=== PATIENT | female | born 1965 | race Caucasian/White ===

== ENCOUNTER 2022-10-17 19:19 | Emergency (ER) | payer MEDICARE, SELFPAY ==
[2022-10-17] VITALS (9 sets, daily range): BP systolic 137–202; BP diastolic 94–110; PULSE 71–108; RESP 16–19; TEMP 36.7; O2SAT 92–99
--- NOTE | 2022-10-17 19:57 | CTR_ITS ---
PROCEDURE INFORMATION: Exam: CTA Head With Contrast, Arteriography Exam date and time: 10/17/2022 8:56 PM Age: 57 years old Clinical indication: Pain; Headache; Additional info: R neck pain/dee TECHNIQUE: Imaging protocol: Computed tomographic angiography of the head with contrast. Exam focused on the arteries. 3D rendering (Not supervised by radiologist): MIP and/or 3D reconstructed images were created by the technologist. Radiation optimization: All CT scans at this facility use at least one of these dose optimization techniques: automated exposure control; mA and/or kV adjustment per patient size (includes targeted exams where dose is matched to clinical indication); or iterative reconstruction. Contrast material: OMNI 350; Contrast volume: 100 ml; Contrast route: INTRAVENOUS (IV); REPORTING DATA: Count of CT and Cardiac NM exams in prior 12 months: This patient has received 0 known CTs and 0 known cardiac nuclear medicine studies in the 12 months prior to the current study. COMPARISON: No relevant prior studies available. RADIATION DOSE METRICS: Total DLP (mGy-cm): 647.8 FINDINGS: ANTERIOR CIRCULATION: Right internal carotid artery: Intracranial segment is patent with no significant stenosis. No aneurysm. Right middle cerebral artery: No occlusion or significant stenosis. No aneurysm. Right anterior cerebral artery: No occlusion or significant stenosis. No aneurysm. Left internal carotid artery: Intracranial segment is patent with no significant stenosis. No aneurysm. Left middle cerebral artery: No occlusion or significant stenosis. No aneurysm. Left anterior cerebral artery: No occlusion or significant stenosis. No aneurysm. POSTERIOR CIRCULATION: Right vertebral artery: No occlusion or significant stenosis. No aneurysm. 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 Left vertebral artery: No occlusion or significant stenosis. No aneurysm. Basilar artery: No occlusion or significant stenosis. No aneurysm. Right posterior cerebral artery: No occlusion or significant stenosis. No aneurysm. Left posterior cerebral artery: No occlusion or significant stenosis. No aneurysm. Brain: No focal hemorrhage or midline shift identified. There is mild atrophy and chronic cerebral white matter ischemic change. Cerebral ventricles: No evidence of ventriculomegaly or hydrocephalus. The ventricles seem age-appropriate. Bones/joints: Unremarkable. No acute fracture. Soft tissues: Unremarkable. PROCEDURE INFORMATION: Exam: CTA Neck With Contrast Exam date and time: 10/17/2022 8:56 PM Age: 57 years old Clinical indication: Pain; Headache; Additional info: R neck pain/dee TECHNIQUE: Imaging protocol: Computed tomographic angiography of the neck with contrast. 3D rendering (Not supervised by radiologist): MIP and/or 3D reconstructed images were created by the technologist. Radiation optimization: All CT scans at this facility use at least one of these dose optimization techniques: automated exposure control; mA and/or kV adjustment per patient size (includes targeted exams where dose is matched to clinical indication); or iterative reconstruction. Contrast material: OMNI 350; Contrast volume: 100 ml; Contrast route: INTRAVENOUS (IV); REPORTING DATA: Count of CT and Cardiac NM exams in prior 12 months: This patient has received 0 known CTs and 0 known cardiac nuclear medicine studies in the 12 months prior to the current study. COMPARISON: No relevant prior studies available. RADIATION DOSE METRICS: Total DLP (mGy-cm): 389.1 FINDINGS: Right common carotid artery: No stenosis. No dissection or occlusion. Right internal carotid artery: No stenosis of the extracranial segment. No dissection or occlusion. Right external carotid artery: No occlusion or high-grade stenosis identififed. Left common carotid artery: No stenosis. No dissection or occlusion. Left internal carotid artery: No stenosis of the extracranial segment. No dissection or occlusion. Left external carotid artery: No occlusion or high-grade stenosis identififed. Right vertebral artery: No stenosis. No dissection or occlusion. 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 Left vertebral artery: No stenosis. No dissection or occlusion. Soft tissues: No significant soft tissue swelling or other acute finding noted. Bones/joints: No acute fracture. Severe right TMJ DJD. Mild diffuse cervical degenerative change. CT/CT angio headneck* [id number] IMPRESSION: 1. No large vessel stenosis or occlusion. 2. Mild age-related changes. IMPRESSION: No stenosis or occlusion. REFERENCES: NASCET CRITERIA. The degree of stenosis in the cervical segment of the internal carotid artery is based on NASCET criteria. Normal is no stenosis. Mild is less than 50% stenosis. Moderate is 50-69% stenosis. Severe is 70% to 99% stenosis. Total occlusion is no detectable patent lumen.
--- NOTE | 2022-10-17 19:58 | W.ED.HA ---
Documented by User: JAMA Arteaga 10/18/22 20:10 HPI - Headache General: Chief Complaint: Headache Stated Complaint: head and neck pain Time Seen by Provider: 10/17/22 19:41 Mode of arrival: ambulatory Limitations: no limitations History of Present Illness: 57-year-old female originally seen by Mrs. Cosby?MURRAY Sanchez. I have seen the patient as well and examined her. This lady has a history of migraines. She complains of a headache today that is somewhat unlike her normal migraine. She has intense neck pain with decreased ability to move her neck without significant discomfort. She is light sensitive. She is nauseated pain was unrelieved by sumatriptan at home. Patient is a 57-year-old female presents to ED today with a complaint of headache and neck pain. Patient tells me symptoms started yesterday. She states she has a history of chronic regional pain syndrome as well as a hereditary spastic disorder. She states both of these conditions can cause headaches and she does have a longstanding history of diagnosed migraines. She states her headache feels somewhat characteristic of previous migraines although the pain in her neck is slightly abnormal. She states pain is mainly to the right side of her neck and worsening with movement. She has not had any visual changes. No recent illness. 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 Associated symptoms: Deny malaise, nausea or vomiting Review of Systems Const: Denies: chills, body aches, fatigue or malaise Eyes: Denies: change in vision, photophobia, floaters or seeing flashes GI: Denies: nausea or vomiting Musc: Reports: neck pain; Denies: back pain, extremity pain, extremity swelling, joint pain or joint swelling Neuro: Reports: headache(s); Denies: behavioral changes, Slurred speech present or seizure-like activity Physical Exam Const: COMMON NORMALS: average body habitus, patient oriented x3, no limitations, alert and well nourished ORIENTATION/CONSCIOUSNESS: Yes awake, Yes oriented to person, Yes oriented to place and Yes oriented to time Eye: GENERAL EYE: normal light reflex VISUAL PEDROZA: No peripheral vision loss and No central vision loss DIRECT OPHTHALMOSCOPY: Yes normal light reflex Neck/C-Spine: COMMON NORMALS: no lymphadenopathy and no meningeal signs GENERAL: Yes normal visual inspection CERVICAL SPINE: Yes pain with cervical ROM and Yes Paracervical muscle tenderness right Extremity: GENERAL: Yes normal exam except as noted Neuro: FERNANDEZ COMA SCALE: document GCS findings [place] coma scale total score: 15 COMMON NORMALS: patient oriented x3, CN's II-XII intact bilaterally and moves all extremities SENSORIUM/ORIENTATION: Yes alert, Yes oriented to person, Yes oriented to place and Yes oriented to time MENINGEAL SIGNS: Yes no meningeal signs Course Vital Signs: Vital signs: Vital Signs Temperature 98.5 F 10/18/22 00:49 Pulse Rate 105 H 10/18/22 00:49 Respiratory Rate 18 10/18/22 00:49 Blood Pressure 162/105 10/18/22 00:49 Pulse Oximetry 98 10/18/22 00:49 Oxygen Delivery Me thod Room Air 10/18/22 00:00 MDM - Headache Lab Data 10/17/22 20:03 10/17/22 20:03 Radiology Impressions Head/Neck CTA 10/17/22 19:57 IMPRESSION: 1. No large vessel stenosis or occlusion. 2. Mild age-related changes. IMPRESSION: No stenosis or occlusion. REFERENCES: NASCET CRITERIA. The degree of stenosis in the cervical segment of the internal carotid artery is based on NASCET criteria. Normal is no stenosis. Mild is less than 50% stenosis. Moderate is 50-69% stenosis. Severe is 70% to 99% stenosis. Total occlusion is no detectable patent lumen. Cervical Spine CT 10/17/22 22:54 IMPRESSION: 1. No acute findings. 2. Mild mid to lower cervical degenerative change. 3. Severe right TMJ DJD. Laboratory Results WBC 7.5 10^3/uL (4.0-10.0) 10/17/22 20:03 RBC 4.68 10^6/uL (4.1-5.3) 10/17/22 20:03 Hgb 13.1 g/dL (11.5-15.3) 10/17/22 20:03 Hct 40.5 % (37.0-47.0) 10/17/22 20:03 MCV 86.5 fl (81-99) 10/17/22 20:03 MCH 28.0 pg (28.0-34.0) 10/17/22 20:03 MCHC 32.3 g/dL (30.0-36.0) 10/17/22 20:03 RDW 13.2 % (12.1-15.1) 10/17/22 20:03 Plt Count 267 10^3/cmm (130-400) 10/17/22 20:03 MPV 11.0 fL (7.4-10.4) H 10/17/22 20:03 Neut % (Auto) 47.0 % 10/17/22 20:03 Lymph % (Auto) 41.9 % 10/17/22 20:03 Carroll % (Auto) 8.9 % 10/17/22 20:03 Eos % (Auto) 1.1 % 10/17/22 20:03 Baso % (Auto) 0.8 % 10/17/22 20:03 Neut # (Auto) 3.51 10^3/uL (1.8-7.7) 10/17/22 20:03 Lymph # (Auto) 3.1 10^3/uL (0.8-4.8) 10/17/22 20:03 Carroll # (Auto) 0.7 10^3/uL (0.2-0.9) 10/17/22 20:03 Eos # (Auto) 0.1 10^3/uL (0.0-0.8) 10/17/22 20:03 Baso # (Auto) 0.1 10^3/uL (0.0-0.1) 10/17/22 20:03 Nucleated RBC % (auto) 0 % 10/17/22 20:03 Nucleated RBCs # 0.0 /100WBC 10/17/22 20:03 Sodium 138 mmol/L (136-145) 10/17/22 20:03 Potassium 3.4 mmol/L (3.5-5.1) L 10/17/22 20:03 Chloride 101 mmol/L (98-107) 10/17/22 20:03 Carbon Dioxide 28 mmol/L (22-29) 10/17/22 20:03 Anion Gap 12.4 (5-19) 10/17/22 20:03 BUN 10 mg/dL (6-20) 10/17/22 20:03 Creatinine 0.8 mg/dL (0.5-0.9) 10/17/22 20:03 GFR Calculation 73.9 mL/min (90-130) L 10/17/22 20:03 Glucose 93 mg/dL (65-115) 10/17/22 20:03 Calculated Osmolality 285 mOsm/kg (285-295) 10/17/22 20:03 Calcium 9.0 mg/dL (8.5-10.5) 10/17/22 20:03 Total Bilirubin 0.2 mg/dL (0.15-1.2) 10/17/22 20:03 AST 12 U/L (0-32) 10/17/22 20:03 ALT 9 U/L (0-33) 10/17/22 20:03 Alkaline Phosphatase 77 U/L (35-105) 10/17/22 20:03 Total Protein 7.0 g/dL (6.6-8.7) 10/17/22 20:03 Albumin 4.3 g/dL (3.5-5.2) 10/17/22 20:03 Globulin 2.7 g/dL (1.3-4.6) 10/17/22 20:03 Discharge Plan Discharge Patient Disposition: Home Clinical Impression: Headache Qualifiers: Headache type: unspecified Headache chronicity pattern: acute headache Intractability: intractable Qualified Code(s): R51.9 - Headache, unspecified Condition: Stable Discharge Orders: Discharge ED (Routine); Ordered 10/18/22 Ordered By: Digna Cosby Patient Instructions: Headache Coding Level of Care Code ED Marble Machine Operator for Chg Fwd Documented by User: Eduard Fermin DO 10/19/22 01:21 HPI - Headache General: Chief Complaint: Headache Stated Complaint: head and neck pain Time Seen by Provider: 10/17/22 19:41 Source: patient and family History of Present Illness: 57-year-old female originally seen by Juan Cosby?MURRAY Sanchez. I have seen the patient as well and examined her. This lady has a history of migraines. She complains of a headache today that is somewhat unlike her normal migraine. She has intense neck pain with decreased ability to move her neck without significant discomfort. She is light sensitive. She is nauseated pain was unrelieved by sumatriptan at home. MD elicited complaint: headache Pertinent past history: other Onset (ago): hour(s) Location: occipital Severity: severe Quality & Timing: aching and throbbing Exacerbating factors: movement of head/neck Relieving factors: nothing Context: occurred at rest Associated symptoms: Reports neck stiffness (More pain with movement than stiffness), photophobia and sound sensitivity; Deny chest pain, confusion, cough, fever(s), numbness, paresthesias, seizures or short of breath Review of Systems Const: Denies: fever(s) Card: Denies: chest pain Resp: Denies: dyspnea GI: Denies: abdominal pain Neuro: Denies: confusion Physical Exam Const: GENERAL APPEARANCE: cooperative and ill appearing (Due to pain.); not frail appearing HENMT: COMMON NORMALS: normocephalic, atraumatic and Normal external nose present HEAD & SCALP: normocephalic and atraumatic FACE & SINUS: normal facial exam and face symmetric NOSE: Normal external nose present Eye: COMMON NORMALS: Equal, round and reactive pupils present and EOMs intact bilaterally PUPIL: Yes Equal, round and reactive pupils present DIRECT OPHTHALMOSCOPY: Yes photophobia Neck/C-Spine: GENERAL: Yes trachea midline Chest: CHEST: Yes Symmetrical chest wall rise Resp: COMMON NORMALS: normal respiratory effort, No retractions, No use of accessory muscles and clear to auscultation bilaterally AUSCULTATION: clear to auscultation bilaterally Cardio: COMMON NORMALS: regular rate and regular rhythm RATE: regular rate RHYTHM: regular rhythm GI: COMMON NORMALS: Normal to inspection, nondistended, normoactive bowel sounds present Extremity: COMMON NORMALS: no pedal edema Neuro: FERNANDEZ COMA SCALE: document GCS findings [place] coma scale eye opening: Spontaneous [place] coma scale verbal response: Orientated [place] coma scale motor response: Obey commands Fernandez coma scale total score: 15 SENSORY EXAM: Yes extremities (intact) Psych: COMMON NORMALS: speech normal SPEECH: Yes normal speech Skin: COMMON NORMALS: no rashes or lesions noted GENERAL SKIN EXAM: no rashes or lesions noted Course Vital Signs: Vital signs: Vital Signs Temperature 98.5 F 10/18/22 00:49 Pulse Rate 105 H 10/18/22 00:49 Respiratory Rate 18 10/18/22 00:49 Blood Pressure 162/105 10/18/22 00:49 Pulse Oximetry 98 10/18/22 00:49 Oxygen Delivery Me thod Room Air 10/18/22 00:00 MDM - Headache Medical Decision Making 57-year-old female with a history of migraine headache. She presents with head and neck pain. She has significant increased pain with movement of her neck, although the neck itself is not stiff or rigid. There is no history of fever. No other recent illness. Her CBC is normal. BMP is normal. CTA of the head and neck shows no arterial dissection. Cervical spine CT shows mild cervical degenerative changes only. Patient was hypertensive on arrival. This is improved with pain control, and with antihypertensive. She is given a migraine cocktail with pain medication with improvement in her pain. She had increased ability to move her neck to some degree. There is no evidence of infection in this patient. No hemorrhage on CTA. We discussed lumbar puncture due to the neck pain, but with no fever, no leukocytosis, no clear history of infection, yield would be low. With improvement, she will be allowed discharge to return for any new or worsening symptoms. Lab Data 10/17/22 20:03 10/17/22 20:03 Radiology Impressions Head/Neck CTA 10/17/22 19:57 IMPRESSION: 1. No large vessel stenosis or occlusion. 2. Mild age-related changes. IMPRESSION: No stenosis or occlusion. REFERENCES: NASCET CRITERIA. The degree of stenosis in the cervical segment of the internal carotid artery is based on NASCET criteria. Normal is no stenosis. Mild is less than 50% stenosis. Moderate is 50-69% stenosis. Severe is 70% to 99% stenosis. Total occlusion is no detectable patent lumen. Cervical Spine CT 10/17/22 22:54 IMPRESSION: 1. No acute findings. 2. Mild mid to lower cervical degenerative change. 3. Severe right TMJ DJD. Laboratory Results WBC 7.5 10^3/uL (4.0-10.0) 10/17/22 20:03 RBC 4.68 10^6/uL (4.1-5.3) 10/17/22 20:03 Hgb 13.1 g/dL (11.5-15.3) 10/17/22 20:03 Hct 40.5 % (37.0-47.0) 10/17/22 20:03 MCV 86.5 fl (81-99) 10/17/22 20:03 MCH 28.0 pg (28.0-34.0) 10/17/22 20:03 MCHC 32.3 g/dL (30.0-36.0) 10/17/22 20:03 RDW 13.2 % (12.1-15.1) 10/17/22 20:03 Plt Count 267 10^3/cmm (130-400) 10/17/22 20:03 MPV 11.0 fL (7.4-10.4) H 10/17/22 20:03 Neut % (Auto) 47.0 % 10/17/22 20:03 Lymph % (Auto) 41.9 % 10/17/22 20:03 Carroll % (Auto) 8.9 % 10/17/22 20:03 Eos % (Auto) 1.1 % 10/17/22 20:03 Baso % (Auto) 0.8 % 10/17/22 20:03 Neut # (Auto) 3.51 10^3/uL (1.8-7.7) 10/17/22 20:03 Lymph # (Auto) 3.1 10^3/uL (0.8-4.8) 10/17/22 20:03 Carroll # (Auto) 0.7 10^3/uL (0.2-0.9) 10/17/22 20:03 Eos # (Auto) 0.1 10^3/uL (0.0-0.8) 10/17/22 20:03 Baso # (Auto) 0.1 10^3/uL (0.0-0.1) 10/17/22 20:03 Nucleated RBC % (auto) 0 % 10/17/22 20:03 Nucleated RBCs # 0.0 /100WBC 10/17/22 20:03 Sodium 138 mmol/L (136-145) 10/17/22 20:03 Potassium 3.4 mmol/L (3.5-5.1) L 10/17/22 20:03 Chloride 101 mmol/L (98-107) 10/17/22 20:03 Carbon Dioxide 28 mmol/L (22-29) 10/17/22 20:03 Anion Gap 12.4 (5-19) 10/17/22 20:03 BUN 10 mg/dL (6-20) 10/17/22 20:03 Creatinine 0.8 mg/dL (0.5-0.9) 10/17/22 20:03 GFR Calculation 73.9 mL/min (90-130) L 10/17/22 20:03 Glucose 93 mg/dL (65-115) 10/17/22 20:03 Calculated Osmolality 285 mOsm/kg (285-295) 10/17/22 20:03 Calcium 9.0 mg/dL (8.5-10.5) 10/17/22 20:03 Total Bilirubin 0.2 mg/dL (0.15-1.2) 10/17/22 20:03 AST 12 U/L (0-32) 10/17/22 20:03 ALT 9 U/L (0-33) 10/17/22 20:03 Alkaline Phosphatase 77 U/L (35-105) 10/17/22 20:03 Total Protein 7.0 g/dL (6.6-8.7) 10/17/22 20:03 Albumin 4.3 g/dL (3.5-5.2) 10/17/22 20:03 Globulin 2.7 g/dL (1.3-4.6) 10/17/22 20:03 Discharge Plan Discharge Patient Disposition: Home Clinical Impression: Headache Qualifiers: Headache type: unspecified Headache chronicity pattern: acute headache Intractability: intractable Qualified Code(s): R51.9 - Headache, unspecified Condition: Stable Discharge Orders: Discharge ED (Routine); Ordered 10/18/22 Ordered By: Digna Cosby Patient Instructions: Headache Coding Level of Care Code ED Marble Machine Operator for Barbara Mundo
[2022-10-17 20:08] LABS: Basophils # 0.1 10^3/uL (0.0-0.1); Basophils % 0.8 %; Eosinophils # 0.1 10^3/uL (0.0-0.8); Eosinophils % 1.1 %; Hematocrit 40.5 % (37.0-47.0); Hemoglobin 13.1 g/dL (11.5-15.3); Lymphocytes # 3.1 10^3/uL (0.8-4.8); Lymphocytes % 41.9 %; Mean Corpuscular HGB Conc 32.3 g/dL (30.0-36.0); Mean Corpuscular Volume 86.5 fl (81-99); Monocytes # 0.7 10^3/uL (0.2-0.9); Monocytes % 8.9 %; Neutrophils # 3.51 10^3/uL (1.8-7.7); Nucleated Red Blood Cells % 0 %; Platelet Count 267 10^3/cmm (130-400); Red Blood Count 4.68 10^6/uL (4.1-5.3); Red Cell Distribution Width 13.2 % (12.1-15.1); White Blood Count 7.5 10^3/uL (4.0-10.0)
[2022-10-17] MEDS: ondansetron 2 mg/ML SDV 2 mL 4 MG IVP (20:09)
[2022-10-17] MEDS: morphine 4 mg/mL SDV 1 mL IVP (20:11)
[2022-10-17] MEDS: dexamethasone 10 mg/mL INJ 8 MG IV (20:14)
[2022-10-17] MEDS: diphenhydrAMINE 50 mg/mL SDV 1mL IVP (20:16)
[2022-10-17 20:28] LABS: Alanine Aminotransferase 9 U/L (0-33); Albumin Level 4.3 g/dL (3.5-5.2); Alkaline Phosphatase 77 U/L (35-105); Anion Gap 12.4 (5-19); Aspartate Amino Transferase 12 U/L (0-32); Blood Urea Nitrogen 10 mg/dL (6-20); Carbon Dioxide 28 mmol/L (22-29); Chloride 101 mmol/L (98-107); Globulin 2.7 g/dL (1.3-4.6); Glomerular Filtration Rate 73.9 mL/min (90-130); Glucose 93 mg/dL (65-115); Osmolality Calculated 285 mOsm/kg (285-295); Potassium 3.4 mmol/L (3.5-5.1); Sodium 138 mmol/L (136-145); Total Bilirubin 0.2 mg/dL (0.15-1.2)
[2022-10-17] MEDS: hyDRALAzine 20 mg/mL INJ 1 mL 10 MG IVP (21:08)
[2022-10-17] MEDS: iohexol 350 mg/mL 500 mL Btl (per mL) IV (21:12)
[2022-10-17] MEDS: ketorolac 60 mg/2 mL INJ 30 MG IVP (21:49)
--- NOTE | 2022-10-17 22:54 | CTR_ITS ---
PROCEDURE INFORMATION: Exam: CT Cervical Spine Without Contrast Exam date and time: 10/17/2022 8:56 PM Age: 57 years old Clinical indication: Patient HX: Severe ATKINSON and neck pain. PT had cta head/neck earlier. Used images to create reformats/recons TECHNIQUE: Imaging protocol: Computed tomography of the cervical spine without contrast. Radiation optimization: All CT scans at this facility use at least one of these dose optimization techniques: automated exposure control; mA and/or kV adjustment per patient size (includes targeted exams where dose is matched to clinical indication); or iterative reconstruction. REPORTING DATA: Count of CT and Cardiac NM exams in prior 12 months: This patient has received 0 known CTs and 0 known cardiac nuclear medicine studies in the 12 months prior to the current study. COMPARISON: No relevant prior studies available. RADIATION DOSE METRICS: Total DLP (mGy-cm): 389.1 FINDINGS: Bones/joints: Severe right TMJ DJD. Mild mid to lower cervical degenerative change with loss of disc space and osteophyte formation. A couple of levels of minimal chronic listhesis probably related to facet arthropathy. No acute fracture. No significant disc bulge or herniation. No severe spinal canal stenosis. No significant neural foraminal narrowing. Lungs: Lung apices are normal. Soft tissues: Unremarkable. CT/CT cervical spin wo con* [id number] IMPRESSION: 1. No acute findings. 2. Mild mid to lower cervical degenerative change. 3. Severe right TMJ DJD.
[2022-10-17] MEDS: HYDROmorphone 1 mg/mL INJ 1 mL IVP (23:13)
[2022-10-17] MEDS: valproic acid inj 500 MG in sodium chloride 0.9% 50 ML 55 MG IV (23:27)
[2022-10-18] VITALS: BP 162/105; PULSE 101; RESP 18; O2SAT 98
[2022-10-18 00:49] VITALS: BP 162/105; PULSE 105; RESP 18; TEMP 36.9; O2SAT 98
--- NOTE | 2022-11-05 15:06 | DCPLANNER ---
late entry - patient called due to no primary care physician - no answer at this time.
== END 2022-10-18 00:51 | disposition home or self-care (01) ==
PROVIDERS: Emergency Provider Physician Assistant
DX: R51.9 Headache, unspecified (principal)
CPT/HCPCS: 70496; 70498; 72125; 80053; 85025; 96374; 96375; 99285; J0360; J1100; J1170; J1200; J1885; J2270; J2405; J3490; Q9967

== ENCOUNTER 2022-11-21 12:54 | Emergency (ER) | payer MEDICARE, SELFPAY ==
[2022-11-21 13:01] VITALS: BMI 25.1
[2022-11-21 13:04] VITALS: BP 150/98; PULSE 81; RESP 17; TEMP 37.1; O2SAT 98
--- NOTE | 2022-11-21 13:13 | W.ED.EXTPRO ---
HPI - Extremity Problem General: Chief complaint: Extremity Injury, Upper Stated complaint: Wound on left hand Time Seen by Provider: 11/21/22 13:13 History of Present Illness: Ms. Walters is a 57-year-old lady presenting the emergency department for evaluation of hand injury. This morning at about 630 she was taking her dog out and had a gait that hit her hand. She immediately had pain. She has noticed increased pain and bruising. No new sensory changes. No lacerations or more proximal injuries reported. No other specific changes in health, exacerbating, or alleviating factors identified. Onset (ago): hour(s) Location: left and upper extremity Quality: aching Relieving factors: nothing Exacerbating factors: range of motion and palpation Associated symptoms: Reports no associated symptoms Review of Systems General: Reports: 10 or more systems reviewed and unremarkable except in HPI and below PFSH ED PFSH: Medical History (Updated 12/04/22 @ 11:35 by Olivier Walsh MD) No significant past medical history Surgical History (Updated 12/04/22 @ 11:35 by Olivier Walsh MD) No significant past surgical history Physical Exam Const: COMMON NORMALS: alert GENERAL APPEARANCE: cooperative and well developed HENMT: COMMON NORMALS: normocephalic and atraumatic HEAD & SCALP: normocephalic and atraumatic Eye: COMMON NORMALS: conjunctivae normal CONJUNCTIVA: Yes conjunctivae normal SCLERA: sclerae normal Neck/C-Spine: COMMON NORMALS: supple GENERAL: Yes trachea midline Resp: COMMON NORMALS: clear to auscultation bilaterally EFFORT & INSPECTION: Yes able to speak in complete sentences AUSCULTATION: clear to auscultation bilaterally Cardio: COMMON NORMALS: regular rate and regular rhythm RATE: regular rate RHYTHM: regular rhythm Extremity: NARRATIVE EXTREMITY EXAM: Left hand ecchymosis, mild soft tissue edema, tenderness to palpation of the distal fourth metacarpal region. Distal CMS intact. Pain limitations for range of motion. No obvious deformity. GENERAL: Yes normal exam except as noted and No edema Neuro: COMMON NORMALS: moves all extremities SENSORIUM/ORIENTATION: Yes alert and No Orientation impaired Psych: COMMON NORMALS: mental status grossly normal and Normal thought process present THOUGHT PROCESS: Normal thought process present Course Vital Signs: Vital signs: Vital Signs Temperature 98.8 F 11/21/22 13:04 Pulse Rate 81 11/21/22 13:04 Respiratory Rate 16 11/21/22 14:07 Blood Pressure 150/98 11/21/22 13:04 Pulse Oximetry 97 11/21/22 14:07 Oxygen Delivery Me thod Room Air 11/21/22 13:04 MDM - Extremity (Nontraumatic) Medical Decision Making 57-year-old lady presenting with hand pain after blunt trauma. No evidence of laceration. Exam as above. X-ray negative. No snuffbox tenderness. Improved with analgesia and satisfactory for outpatient management. The results of ED evaluation were discussed with the patient including prescriptions and/or symptomatic cares (if applicable) including appropriate and responsible use, followup plan, and return precautions. The patient verbalized understanding and felt safe for discharge. Medical Records I reviewed the patient's medical records. Lab Data I reviewed the patient's lab results. Discharge Plan Discharge Patient Disposition: Home Clinical Impression: Hand injury Condition: Stable Discharge Orders: Discharge ED (Routine); Ordered 11/21/22 Ordered By: Olivier Walhs Discharge Diet: Usual diet Discharge Activity: Increase activity as tolerated Patient Instructions: Contusion in Adults (ED), P.R.I.C.E. Treatment (ED), Opioid Safety Activity Restrictions/Additional Instructions: Thank you for visiting the emergency department. You were seen and evaluated for hand injury. No broken bones were identified on x-ray. You may use [id number] medications such as acetaminophen and ibuprofen for pain however please do not exceed the daily recommended dosage as listed on the packaging and please keep in mind that many namebrand medications contain the same active ingredients. Please avoid these medications if previously instructed to do so by another physician due to other underlying medical condition. If pain persists beyond 1 week I recommend outpatient follow-up for repeat x-ray. Return for uncontrolled symptoms or anything else that you are concerned about and feel needs emergency department evaluation. Coding Level of Care Code ED Communications Media Professor for Jw Flower
--- NOTE | 2022-11-21 13:20 | XRR_ITS ---
PROCEDURE INFORMATION: Exam: XR Left Hand Exam date and time: 11/21/2022 1:47 PM Age: 57 years old Clinical indication: Injury or trauma; Other: Hit by gate; Blunt trauma (contusions or hematomas); Hand; Left; Additional info: Blunt trauma, bruising distal 4th metacarpal TECHNIQUE: Imaging protocol: Radiologic exam of the left hand. Views: 3 or more views. COMPARISON: No relevant prior studies available. FINDINGS: Bones/joints: Normal. Soft tissues: Normal. XR/XR hand LT min 3V* [id number] IMPRESSION: No acute findings.
[2022-11-21 14:07] VITALS: RESP 16; O2SAT 97
[2022-11-21] MEDS: oxyCODONE 5 mg IR Tab/Cap PO (14:07)
--- NOTE | 2022-11-25 09:56 | DCPLANNER ---
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
== END 2022-11-21 14:43 | disposition home or self-care (01) ==
PROVIDERS: Emergency Provider Emergency Medicine
DX: S60.222A Contusion of left hand, initial encounter (principal); W20.8XXA Other cause of strike by thrown, projected or falling object, initial encounter; Y93.K1 Activity, walking an animal
CPT/HCPCS: 73130; 99283

== ENCOUNTER → 2023-04-12 13:12 | Outpatient (BNVA) | payer MEDICARE, SELFPAY | PROVIDERS: PCP Clinical Nurse Specialist Adult Health; Visit Provider Clinical Nurse Specialist Adult Health | DX: G11.4 Hereditary spastic paraplegia (principal); E03.9 Hypothyroidism, unspecified; F32.9 Major depressive disorder, single episode, unspecified; G43.909 Migraine, unspecified, not intractable, without status migrainosus; M62.838 Other muscle spasm | CPT/HCPCS: 80053; 84443; 85025 ==

== ENCOUNTER 2023-05-09 13:37 | Emergency (ER) | payer MEDICARE, MEDICAID, SELFPAY ==
--- NOTE | 2023-05-09 13:38 | XRR_ITS ---
PROCEDURE INFORMATION: Exam: XR Left Hand Exam date and time: 05/09/2023 1:53 PM Age: 57 years old Clinical indication: Hand and wrist; Left; Prior surgery; Surgery date: 6+ months; Patient HX: Lt hand/wrist pain x several months; HX cyst removal at base of lt index finger 2007 TECHNIQUE: Imaging protocol: Radiologic exam of the left hand. Views: 3 or more views. COMPARISON: CR ( EX, ) 11/21/2022 1:47 PM FINDINGS: Bones/joints: No acute fracture or dislocation. Mild diffuse degenerative changes of the interphalangeal joints of all fingers. No chondrocalcinosis. No inflammatory bony erosions. Soft tissues: Normal. XR/XR hand LT min 3V* [id number] IMPRESSION: No acute fracture or dislocation.
--- NOTE | 2023-05-09 13:38 | XRR_ITS ---
PROCEDURE INFORMATION: Exam: XR Left Wrist Exam date and time: 05/09/2023 1:53 PM Age: 57 years old Clinical indication: Left; Prior surgery; Surgery date: 6+ months; Patient HX: Lt hand/wrist pain x several months; HX cyst removal at base of lt index finger 2007 TECHNIQUE: Imaging protocol: Radiologic exam of the left wrist. Views: 3 or more views. COMPARISON: CR (UP EX, ) 05/09/2023 1:53 PM FINDINGS: Bones/joints: Normal. No acute fracture or dislocation. No chondrocalcinosis. No inflammatory erosions. Minimal degenerative changes. Stable cyst in the lunate. Soft tissues: Normal. XR/XR wrist LT min 3V* [id number] IMPRESSION: No acute findings.
[2023-05-09 13:49] VITALS: BP 128/89; PULSE 75; RESP 16; TEMP 36.6; O2SAT 98; BMI 24.3
--- NOTE | 2023-05-09 13:57 | W.ED.EXTPRO ---
HPI - Extremity Problem General: Chief complaint: Extremity Injury, Upper Stated complaint: Left hand/wrist pain Time Seen by Provider: 05/09/23 13:44 Source: patient Mode of arrival: ambulatory Limitations: no limitations History of Present Illness: 57-year-old female states that she has a cyst on her left wrist that she noticed back in December states she did hit back pain and it went away states that over the last week though she started having pain in that same area. She denies any known injury states the pain just been aching pain. 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 Migraine Hypoglycemia she eats every 4 hours daily to keep her BG up. No known cause. Surgical History Hx of toe surgery right great toenail removal Hx of hand surgery hx of cyst removal from left hand Hx of hysterectomy for history of cervical cancer Family History Mother Cancer rectal cancer Brother Cancer rectal Father CAD (coronary artery disease) Other Spastic paraplegia Social History Smoking and tobacco/nicotine status: former use of tobacco/nicotine Quit status (tobacco/nicotine): has quit using Former quit date comment: age 51 Alcohol intake: never Substance/Drug Use: current Substance/Drug use frequency: few times a week Other substance/drug use details: julia Lives independently: No Household members: friend(s) Physical Exam Const: COMMON NORMALS: no acute distress, patient oriented x3 and healthy appearing HENMT: COMMON NORMALS: normocephalic and atraumatic HEAD & SCALP: normocephalic and atraumatic Eye: COMMON NORMALS: Equal, round and reactive pupils present and EOMs intact bilaterally PUPIL: Yes Equal, round and reactive pupils present Neck/C-Spine: COMMON NORMALS: full ROM and supple Chest: COMMONS NORMALS: normal inspection of the chest Resp: COMMON NORMALS: normal respiratory effort Cardio: COMMON NORMALS: regular rate, regular rhythm and No murmurs present (Cardio) RATE: regular rate RHYTHM: regular rhythm Extremity: COMMON NORMALS: normal to inspection and full ROM NARRATIVE EXTREMITY EXAM: Tenderness over left wrist no obvious fracture distal pulses sensation intact Neuro: COMMON NORMALS: patient oriented x3, moves all extremities and no focal motor deficits Psych: COMMON NORMALS: mental status grossly normal, Normal thought process present and cooperative THOUGHT PROCESS: Normal thought process present Skin: COMMON NORMALS: no rashes or lesions noted and no wounds GENERAL SKIN EXAM: no rashes or lesions noted Course Vital Signs: Vital signs: Vital Signs Temperature 97.8 F 05/09/23 13:49 Pulse Rate 75 05/09/23 13:49 Respiratory Rate 16 05/09/23 13:49 Blood Pressure 128/89 05/09/23 13:49 Pulse Oximetry 98 05/09/23 13:49 Oxygen Delivery Me thod Room Air 05/09/23 13:49 MDM - Extremity (Nontraumatic) Medical Decision Making Patient presents here with wrist pain x-ray here is negative patient stable for discharge she is follow-up PCP and return if worsening Medical Records I reviewed the patient's medical records. XR interpretation done by ED provider, pending radiology final review ED provider radiology interpretation(s): xr wrist: no acute fx Discharge Plan Discharge Patient Disposition: Home Clinical Impression: Left wrist pain Condition: Stable Prescriptions: New Naprosyn 500 mg tablet 500 mg PO BID PRN (Reason: pain) Qty: 20 0RF No Action citalopram 20 mg tablet 20 mg PO DAILY lidocaine 5 % adhesive patch,medicated 1 patch transdermal DAILY sumatriptan succinate 50 mg tablet 50 mg PO ONCE PRN (Reason: migraine headache) oxybutynin chloride 5 mg tablet 5 mg PO DAILY hydroxyzine HCl 10 mg tablet 10 mg PO TID PRN (Reason: anxiety) baclofen 5 mg tablet 5 mg PO TID Qty: 90 3RF bupropion HCl 300 mg tablet extended release 24 hr 300 mg PO DAILY Qty: 30 3RF gabapentin 800 mg tablet 800 mg PO TID 30 Days Qty: 90 2RF levothyroxine 100 mcg capsule 100 mcg PO DAILY Qty: 30 11RF ropinirole 0.5 mg tablet 0.5 mg PO DAILY PRN (Reason: restless legs) Qty: 30 3RF Discharge Orders: Discharge ED (Routine); Ordered 05/09/23 Ordered By: Giulia Lala Referrals: César Clemons NP [Primary Care Provider] - Abrahan Alvarado DO [Physician] - 1-3 days Discharge Diet: Advance as tolerated Discharge Activity: Resume usual activity Patient Instructions: Wrist Injury (ED) Coding Level of Care Code ED [employer] Pumper for Jw Flower
[2023-05-09] MEDS: naproxen 500 mg Tablet PO (14:15)
--- NOTE | 2023-05-10 07:42 | DCPLANNER ---
Message was sent to ortho on 05/10/23 at 0742 am. Clinic to contact patient
== END 2023-05-09 14:35 | disposition home or self-care (01) ==
PROVIDERS: Emergency Provider Emergency Medicine; PCP Clinical Nurse Specialist Adult Health
DX: M25.532 Pain in left wrist (principal); Z87.891 Personal history of nicotine dependence; N18.30 Chronic kidney disease, stage 3 unspecified; G11.4 Hereditary spastic paraplegia
CPT/HCPCS: 73110; 73130; 99283

== ENCOUNTER 2023-05-27 14:15 | Outpatient (CLI) | payer MEDICARE, SELFPAY ==
--- NOTE | 2023-05-27 14:19 | MM_ITS ---
WS: [id number] BILATERAL SCREENING DIGITAL TOMOSYNTHESIS MAMMOGRAM WITH CAD HISTORY: screening. with history of benign cysts COMPARISON: 05/06/2021 Bilateral CC and MLO views with tomosynthesis and synthetic mammography submitted. Computer aided det ection analyzed. Breast composition: There are scattered areas of fibroglandular density. No suspicious masses, microc alcifications or architectural distortion. Stable calcifications and asymmetries within each breast. IMPRESSION: MM/[place] [id number] BI-RADS: 2-Benign FOLLOW UP: 1 Year Follow-up
--- NOTE | 2023-05-27 15:00 | XR_ITS ---
WS: [email or web address] SCREENING DEXA SCAN [facility] CLINICAL INFORMATION: osteopenia history, last DEXA 2014? COMPARISON: None. FINDINGS: The L1-L4 bone mineral density measures 1.150 g/cm2. This corresponds to a T score score of -0.3 and Z score of 0.4. Left femoral neck bone mineral density measures 0.899 g/cm2. This corresponds to a T score of -0.9 an d Z score of -0.3. Right femoral neck bone mineral density measures 0.878 g/cm2. This corresponds to a T score -1.0of an d Z score of -0.5. Mean femoral neck bone mineral density measures 0.889 g/cm2. This corresponds to a T score of -0.9 an d Z score of -0.4. IMPRESSION: Normal bone mineralization lumbar spine. Osteopenia femoral necks at the lower end of the range. Patient's FRAX calculated 10 year probability for major osteoporotic fracture is 12.1% and osteoporot ic hip fracture is 0.8%.
== END 2023-05-27 14:16 | disposition home or self-care (01) ==
LOC: RAD 14:15
PROVIDERS: PCP Clinical Nurse Specialist Adult Health; Visit Provider Clinical Nurse Specialist Adult Health
DX: Z12.31 Encounter for screening mammogram for malignant neoplasm of breast (principal); R92.323 Mammographic fibroglandular density, bilateral breasts; R92.1 Mammographic calcification found on diagnostic imaging of breast; N64.89 Other specified disorders of breast; Z13.820 Encounter for screening for osteoporosis; Z78.0 Asymptomatic menopausal state; M85.852 Other specified disorders of bone density and structure, left thigh; M85.851 Other specified disorders of bone density and structure, right thigh
CPT/HCPCS: 77063; 77067; 77080

== ENCOUNTER 2023-06-01 13:48 | Outpatient (CLI) | payer MEDICARE, MEDICAID, SELFPAY ==
[2023-06-01 15:25] LABS: 25 Hydroxy Vitamin D 11 ng/mL (30-100)
== END 2023-06-01 13:49 | disposition home or self-care (01) ==
LOC: LAB 13:48
PROVIDERS: PCP Clinical Nurse Specialist Adult Health; Visit Provider Clinical Nurse Specialist Adult Health
DX: M85.80 Other specified disorders of bone density and structure, unspecified site (principal); M65.9 Synovitis and tenosynovitis, unspecified
CPT/HCPCS: 20605; 82306; 99203; J1040

== ENCOUNTER → 2023-06-23 08:07 | Outpatient (BNVA) | payer MEDICARE, MEDICAID, SELFPAY | PROVIDERS: PCP Clinical Nurse Specialist Adult Health; Referring Provider Clinical Nurse Specialist Adult Health; Visit Provider Psychiatry & Neurology Neurology | DX: G11.4 Hereditary spastic paraplegia (principal); E53.8 Deficiency of other specified B group vitamins; M54.9 Dorsalgia, unspecified; R25.2 Cramp and spasm; M79.606 Pain in leg, unspecified; R53.1 Weakness; E55.9 Vitamin D deficiency, unspecified | CPT/HCPCS: 99203 ==

== ENCOUNTER 2023-06-29 10:08 | Emergency (ER) | payer MEDICARE, MEDICAID, SELFPAY ==
[2023-06-29 10:24] VITALS: BP 124/86; PULSE 101; RESP 16; TEMP 36.6; O2SAT 97; BMI 24.2
--- NOTE | 2023-06-29 10:57 | XR_ITS ---
WS: [email or web address] Exam: XR chest 1V portable [id number] Date/Time of Exam: 06/29/2023 11:00 AM Reason For Exam: cp No priors. The lungs are clear and fully inflated. Normal cardiomediastinal silhouette and regional bony element s. No pleural effusion. IMPRESSION: 1. Negative chest.
[2023-06-29 11:34] LABS: Basophils # 0.1 10^3/uL (0.0-0.1); Basophils % 0.8 %; Eosinophils % 0.5 %; Hematocrit 44.6 % (36-47); Lymphocytes # 2.1 10^3/uL (0.8-4.8); Mean Corpuscular HGB Conc 33.2 g/dL (30-55); Mean Corpuscular Hemoglobin 28.7 pg (27-33); Mean Corpuscular Volume 86.6 fl (85-98); Monocytes # 0.5 10^3/uL (0.2-0.9); Monocytes % 7.8 %; Neutrophils # 3.28 10^3/uL (1.8-7.7); Neutrophils % 55.7 %; Nucleated Red Blood Cells % 0 %; Platelet Count 262 10^3/cmm (157-399); Red Blood Count 5.15 10^6/uL (3.85-5.65); Red Cell Distribution Width 13.1 % (12.1-15.1); White Blood Count 5.89 10^3/uL (3.29-11.43)
[2023-06-29 11:53] LABS: Alanine Aminotransferase 7 U/L (0-33); Albumin Level 4.4 g/dL (3.5-5.2); Alkaline Phosphatase 67 U/L (35-105); Anion Gap 15.6 (5-19); Aspartate Amino Transferase 10 U/L (0-32); Blood Urea Nitrogen 14 mg/dL (6-20); Calcium 9.2 mg/dL (8.5-10.5); Carbon Dioxide 26 mmol/L (22-29); Chloride 100 mmol/L (98-107); Creatinine Clr Calc Pharmacy 61.8877; Globulin 2.6 g/dL (1.3-4.6); Glomerular Filtration Rate 51.2 mL/min (90-130); Glucose 92 mg/dL (65-115); Lipase 25 U/L (13-60); Osmolality Calculated 286 mOsm/kg (285-295); Potassium 3.6 mmol/L (3.5-5.1); Sodium 138 mmol/L (136-145); Total Bilirubin 0.3 mg/dL (0.15-1.2)
[2023-06-29 12:01] LABS: Troponin(5th) Baseline 8 ng/L (0-10)
--- NOTE | 2023-06-29 13:11 | ECG_ITS ---
[facility] Test Date: 2023-06-29 Pat Name: Rosio Walters Department: Room: Gender: Female [employer]: : 1965 Requested By: Giulai Lala Order Number: [id number] Ramon MD: Jose L Schroeder M.D. Measurements Intervals [place] Rate: 78 P: 9 DC: 161 QRS: 1 QRSD: 92 T: 27 QT: 391 QTc: 445 Interpretive Statements SINUS RHYTHM WITH SINUS ARRHYTHMIA NONSPECIFIC T-WAVE ABNORMALITY No previous ECG available for comparison Electronically Signed On 06-29-2023 16:03:34 CAKE MIXER by Jose L Schroeder M.D. [id number]
== END 2023-06-29 16:08 | disposition left against medical advice (07) ==
PROVIDERS: Emergency Medicine; Emergency Provider Family Medicine; PCP Clinical Nurse Specialist Adult Health
DX: Z53.21 Procedure and treatment not carried out due to patient leaving prior to being seen by health care provider (principal)
CPT/HCPCS: 36415; 71045; 80053; 83690; 84484; 85025; 93005; 99285

== ENCOUNTER 2023-06-30 09:29 | Outpatient (CLI) | payer MEDICARE, MEDICAID, SELFPAY ==
--- NOTE | 2023-06-30 09:32 | XR_ITS ---
WS: [email or web address] Exam: XR abdomen 3V [id number] Date/Time of Exam: 06/30/2023 10:04 AM Reason For Exam: abdomen pain LUQ No bowel obstruction or free air. No sign of organ enlargement. Nonspecific LEFT pelvic calcification s. Small calcification superimposes the LEFT kidney and could represent a renal calculus. Mild dextro scoliosis of the lumbar spine and degenerative change. IMPRESSION: 1. No acute abdominal process. 2. Small calcification superimposes the LEFT kidney and could represent a renal calculus. There are a lso nonspecific small LEFT pelvic calcifications noted
== END 2023-06-30 09:30 | disposition home or self-care (01) ==
LOC: RAD 09:29
PROVIDERS: PCP Clinical Nurse Specialist Adult Health; Visit Provider Clinical Nurse Specialist Adult Health
DX: R10.12 Left upper quadrant pain (principal); N39.0 Urinary tract infection, site not specified
CPT/HCPCS: 74021; 81000; 87086

== ENCOUNTER 2023-06-30 16:55 | Outpatient (CLI) | payer MEDICARE, MEDICAID, SELFPAY ==
--- NOTE | 2023-06-30 17:00 | CTR_ITS ---
PROCEDURE INFORMATION: Exam: CT Abdomen And Pelvis Without Contrast Exam date and time: 06/30/2023 5:01 PM Age: 57 years old Clinical indication: Other: Left flank pain with hematuria; Prior surgery; Surgery date: 6+ months; Surgery type: Hysterectomy, gallbladder; Patient HX: Left flank pain and hematuria x 1 week; Additional info: Possible kidney stone in left kidney. Abnormal abd xray, hematuria with left flank pain TECHNIQUE: Imaging protocol: Computed tomography of the abdomen and pelvis without contrast. Radiation optimization: All CT scans at this facility use at least one of these dose optimization techniques: automated exposure control; mA and/or kV adjustment per patient size (includes targeted exams where dose is matched to clinical indication); or iterative reconstruction. COMPARISON: CR XR abdomen 3V [id number] 06/30/2023 10:06 AM RADIATION DOSE METRICS: Total DLP (mGy-cm): 401.27 FINDINGS: Limitations: The absence of intravenous contrast lessens the sensitivity of this study for solid organ abnormalities. Liver: There is a 2 x 2.4 cm sized area of hypodensity posterior right lobe of the liver (segment 7; series 3, image 36)Further evaluation with non-emergent liver MRI is recommended. (Reference: Vidhi) Gallbladder and bile ducts: There has been a cholecystectomy. There is no common bile duct dilation. Pancreas: The pancreas is normal. Spleen: The spleen is normal. Adrenal glands: There is a 9 mm sized right adrenal nodule, likely benign. No further evaluation is necessary. 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 There is 5 mm sized benign-appearing hyperdense cortical cyst lower pole right kidney and a 6 mm hyperdense cyst upper pole. There is a 3 mm sized nonobstructing stone in a calyx in the mid left kidney which corresponds with the findings on the recent radiograph. There is no evidence of hydronephrosis. There is no stone along the course of either ureter. Stomach and bowel: Mild diverticulosis is present in the distal colon. There is no evidence of colitis/diverticulitis. There is no evidence of intestinal obstruction. Appendix: A normal appendix is identified. Intraperitoneal space: There is no evidence of free intraperitoneal fluid. Vasculature: The aorta demonstrates mild atherosclerotic calcification. There is no evidence of an abdominal aortic aneurysm. Lymph nodes: There is no evidence of lymphadenopathy. Urinary bladder: Unremarkable as visualized. Reproductive: There has been a hysterectomy. Bones/joints: Unremarkable. No acute fracture. Soft tissues: Unremarkable. CT/CT kidney stone [id number] IMPRESSION: 1. Nonobstructing left kidney stone 2. No ureteral calculi are identified 3. Indeterminate lesion right lobe of the liver. Comparison with prior examinations if available or further evaluation with MRI suggested. COMMENTS: Consistent with the [employer] [employer]'s Incidental Findings Committee white paper (J Am Margaret Radiol 2018): Any incidental renal lesion less than 1 cm or classified as too small to characterize, or any incidental cystic renal lesion characterized as simple-appearing, is likely benign. No follow-up imaging is recommended for these lesions per consensus recommendations based on imaging criteria. REFERENCES: Vidhi STEVEN, et al. Management of Incidental Liver Lesions on CT: A White Paper of the ACR Incidental Findings Committee. J Am Margaret Radiol. 2017;14(11):8079-8354.
== END 2023-06-30 16:56 | disposition home or self-care (01) ==
LOC: RAD 16:55
PROVIDERS: PCP Clinical Nurse Specialist Adult Health; Visit Provider Clinical Nurse Specialist Adult Health
DX: R31.9 Hematuria, unspecified (principal); N20.0 Calculus of kidney; K76.9 Liver disease, unspecified; R10.12 Left upper quadrant pain; N39.0 Urinary tract infection, site not specified
CPT/HCPCS: 74021; 74176; 81000; 87086

== ENCOUNTER → 2023-07-06 14:44 | Outpatient (BNVA) | payer MEDICARE, MEDICAID, SELFPAY | PROVIDERS: PCP Clinical Nurse Specialist Adult Health; Visit Provider Podiatrist Foot & Ankle Surgery | DX: G11.4 Hereditary spastic paraplegia (principal); M21.371 Foot drop, right foot; M21.372 Foot drop, left foot | CPT/HCPCS: 99203 ==

== ENCOUNTER → 2023-07-27 10:17 | Outpatient (BNVA) | payer MEDICARE, MEDICAID, SELFPAY | PROVIDERS: PCP Clinical Nurse Specialist Adult Health; Visit Provider Anesthesiology Pain Medicine | DX: G11.4 Hereditary spastic paraplegia; M48.061 Spinal stenosis, lumbar region without neurogenic claudication; M43.16 Spondylolisthesis, lumbar region | CPT/HCPCS: 99205 ==

== ENCOUNTER 2023-07-29 07:38 | Outpatient (CLI) | payer MEDICARE, MEDICAID, SELFPAY ==
--- NOTE | 2023-07-29 08:00 | MR_ITS ---
WS: [email or web address] MRI ABDOMEN WITHOUT CONTRAST. COMPARISON: CT 06/30/2023 Multiplanar, multisequence imaging is performed without contrast. Liver is top normal size. Mild diffuse hepatic steatosis. Reidentified is a signal abnormality in the posterior medial RIGHT lobe of the liver measuring 1.8 x 1.1 cm. This corresponds to the recent nonc ontrast CT finding. This is a well-circumscribed mass and follows fluid signal on all sequences. Ther e is no bile duct dilatation. Prior cholecystectomy. Common bile duct is normal size. No pancreatic a bnormality. Bilateral renal cysts. The largest lower pole LEFT kidney measures 11 mm. There is no renal obstructi on or solid mass identified. The spleen is normal size. No ascites or adenopathy. Small amount of eduardo ris in the stomach. Atherosclerosis aorta. IMPRESSION: 1. Identified is a well-circumscribed mass in the posterior medial liver measuring 1.8 x 1.1 cm. Thi s study was performed without IV contrast therefore further characterization is impossible at this ti me. This does follow fluid on all sequences suggesting it could possibly be a cyst although on the CT was not a simple cyst. May be a complex cyst. Recommend follow-up MRI of the abdomen with contrast t o complete this examination. 2. Bilateral renal cysts with no obstruction or solid mass. 3. Prior cholecystectomy.
--- NOTE | 2023-07-29 08:45 | MR_ITS ---
WS: [email or web address] MRI LUMBAR SPINE WITH AND WITHOUT CONTRAST HISTORY: G43.909 - Migraine, unspecified, not intractable, without... COMPARISON: None available. TECHNIQUE: Sagittal and axial multisequence imaging is submitted. Post contrast MultiHance 16 mL IV. C5-6 Central disc protrusion contacting the ventral cervical cord. No cord compression. Increase in the lumbar lordosis. Mild disc space narrowing and desiccation. L2 and L3 retrolisthesis by 3 mm. 2 mm retrolisthesis of L 4. Conus terminates normally at L1. L1-L2: Mild annular disc bulging. No stenosis. L2-L3: Mild encroachment upon the ventral thecal sac due to the retrolisthesis of L2 and annular disc bulging and facet arthritis. Mild central and bilateral subarticular recess stenosis. L3-L4: Mild retrolisthesis of L3. Diffuse annular disc bulging and facet joint arthritis. Mild centra l, bilateral subarticular recess and RIGHT foraminal stenosis. Disc extends asymmetrically to the RIG HT. There is slight contact on the RIGHT exiting L3 nerve root. L4-L5: Diffuse annular disc bulging with a central disc protrusion and annular fissure. Moderate face t joint arthritis. Moderate central with mild subarticular recess and RIGHT foraminal stenosis. L5-S1: Mild asymmetric disc bulging. Shallow proximal LEFT foraminal disc protrusion. Annular fissure in the RIGHT foramen. Moderate facet arthritis. No significant stenosis. LEFT renal cyst 9 mm. Postcontrast imaging is negative for discitis or osteomyelitis. No mass. No nerve root enhancement. IMPRESSION: 1. L2 and L3 retrolisthesis by 3 mm. L4 retrolisthesis by 2 mm. 2. Increase in the lumbar lordosis. 3. L2-3: Mild central and bilateral subarticular recess stenosis. 4. L3-4: Mild central, bilateral subarticular recess and RIGHT foraminal stenosis with slight contac t on the RIGHT exiting L3 nerve root. 5. L4-5: Moderate central with bilateral subarticular recess and RIGHT foraminal stenosis. 6. L5-S1: Shallow LEFT foraminal disc protrusion. No significant stenosis. 7. No abnormal enhancement.
[2023-07-29] MEDS: gadobenate dimeglumine 20 mL vial IV (09:21)
== END 2023-07-29 07:39 | disposition home or self-care (01) ==
PROVIDERS: PCP Clinical Nurse Specialist Adult Health; Visit Provider Psychiatry & Neurology Neurology
DX: K76.9 Liver disease, unspecified (principal); G43.909 Migraine, unspecified, not intractable, without status migrainosus; R29.90 Unspecified symptoms and signs involving the nervous system; E53.8 Deficiency of other specified B group vitamins; M54.9 Dorsalgia, unspecified
CPT/HCPCS: 72158; 74181; A9577

== ENCOUNTER → 2023-08-03 10:07 | Outpatient (BNVA) | payer MEDICARE, MEDICAID, SELFPAY | PROVIDERS: PCP Clinical Nurse Specialist Adult Health; Visit Provider Anesthesiology Pain Medicine | DX: G11.4 Hereditary spastic paraplegia; M48.061 Spinal stenosis, lumbar region without neurogenic claudication; M43.16 Spondylolisthesis, lumbar region; M65.312 Trigger thumb, left thumb | CPT/HCPCS: 99213; 99214 ==

== ENCOUNTER → 2023-08-11 13:10 | Outpatient (BNVA) | payer MEDICARE, MEDICAID, SELFPAY | PROVIDERS: PCP Clinical Nurse Specialist Adult Health; Visit Provider Anesthesiology Pain Medicine | DX: M54.16 Radiculopathy, lumbar region (principal) | CPT/HCPCS: 64483; 64484; J1100; J3490 ==

== ENCOUNTER → 2023-08-25 09:04 | Outpatient (BNVA) | payer MEDICARE, MEDICAID, SELFPAY | PROVIDERS: PCP Clinical Nurse Specialist Adult Health; Visit Provider Anesthesiology Pain Medicine | DX: G11.4 Hereditary spastic paraplegia; M48.061 Spinal stenosis, lumbar region without neurogenic claudication; M43.10 Spondylolisthesis, site unspecified | CPT/HCPCS: 99214 ==

== ENCOUNTER 2023-09-23 15:45 | Outpatient (CLI) | payer MEDICARE, MEDICAID, SELFPAY ==
--- NOTE | 2023-09-23 16:00 | MR_ITS ---
WS: [email or web address] MRI/MRCP OF THE ABDOMEN WITHOUT GADOLINIUM ENHANCEMENT TECHNIQUE: Coronal T2 Fase BH, Axial T2 Fase BH, Axial T2 FS BH, Zxial 3D Bunch BH, Axial DWI BH, 2D MRCP Radial BH, 3D MRCP (Resp), and Axial 3D Dyn BH Post sequences. CLINICAL INFORMATION: abnormal Ct abdomen and noncontrast MRI COMPARISON: None. FINDINGS: Again seen is the previously described lesion in the posterior medial RIGHT hepatic lobe measuring 1. 8 x 1.1 cm unchanged. This demonstrates increased T2 signal with delayed progressive enhancement. Karely ging characteristics most compatible with benign cavernous hemangioma. No other significant changes compared to previous. Prior cholecystectomy. Food products in the stomach. Normal spleen. Normal portal vein and splenic ve in. Pancreas appears grossly normal. No hydronephrosis in either kidney. Partially visualized small r enal cysts. MR/MR abdomen wo/w con* [id number] Impression: Previously described RIGHT hepatic lesion has enhancement characteristics most compatible with benign cavernous hemangioma
[2023-09-23] MEDS: gadobenate dimeglumine 20 mL vial IV (16:28)
== END 2023-09-23 15:46 | disposition home or self-care (01) ==
PROVIDERS: PCP Clinical Nurse Specialist Adult Health; Visit Provider Clinical Nurse Specialist Adult Health
DX: K76.9 Liver disease, unspecified (principal); Q61.02 Congenital multiple renal cysts; Z98.890 Other specified postprocedural states
CPT/HCPCS: 74183; A9577

== ENCOUNTER → 2023-10-04 10:54 | Outpatient (BNVA) | payer MEDICARE, MEDICAID, SELFPAY | PROVIDERS: PCP Clinical Nurse Specialist Adult Health; Visit Provider Anesthesiology Pain Medicine | DX: G11.4 Hereditary spastic paraplegia; M48.061 Spinal stenosis, lumbar region without neurogenic claudication; M43.16 Spondylolisthesis, lumbar region | CPT/HCPCS: 99214 ==

== ENCOUNTER → 2023-10-05 10:41 | Outpatient (BNVA) | payer MEDICARE, MEDICAID, SELFPAY | PROVIDERS: PCP Clinical Nurse Specialist Adult Health; Visit Provider Physician Assistant | DX: M65.312 Trigger thumb, left thumb (principal) | CPT/HCPCS: 99214 ==

== ENCOUNTER 2023-10-20 08:45 | Outpatient (CLI) | payer MEDICARE, MEDICAID, SELFPAY ==
--- NOTE | 2023-10-20 08:57 | XR_ITS ---
WS: [email or web address] Exam: XR thoracic spine 3V* [id number] Date/Time of Exam: 10/20/2023 8:58 AM Reason For Exam: thoracic pain after fall No acute fracture or dislocation. Mild spondylosis. Osteopenia. Increased kyphosis. Paraspinal soft t issues are unremarkable. XR/XR thoracic spine 3V* [id number] IMPRESSION: 1. No fracture or malalignment. 2. Osteopenia, mild DJD and increased kyphosis.
== END 2023-10-20 08:46 | disposition home or self-care (01) ==
PROVIDERS: PCP Clinical Nurse Specialist Adult Health; Visit Provider Clinical Nurse Specialist Adult Health
DX: M85.80 Other specified disorders of bone density and structure, unspecified site (principal); M40.204 Unspecified kyphosis, thoracic region; W19.XXXA Unspecified fall, initial encounter; M54.6 Pain in thoracic spine
CPT/HCPCS: 72072

== ENCOUNTER → 2023-11-02 14:37 | Outpatient (BNVA) | payer MEDICARE, MEDICAID, SELFPAY | PROVIDERS: PCP Clinical Nurse Specialist Adult Health; Visit Provider Physician Assistant | DX: M65.312 Trigger thumb, left thumb (principal) | CPT/HCPCS: 99213 ==

== ENCOUNTER 2023-11-17 05:53 | Day surgery (SDC) | payer MEDICARE, MEDICAID, SELFPAY ==
[2023-11-17] VITALS (7 sets, daily range): BP systolic 132–153; BP diastolic 88–111; PULSE 62–77; RESP 14–20; TEMP 36.1–36.3; O2SAT 91–99; BMI 25.5
[2023-11-17] MEDS: sodium chloride 0.9% 1,000 ML 30 ML IV (06:29)
[2023-11-17] MEDS: ketorolac 30 mg/mL INJ IVP (06:31)
[2023-11-17] MEDS: scopolamine 1.5 Patch 1 PATCH TRANSDERMA (06:33)
[2023-11-17] MEDS: acetaminophen 1,000 MG/100 ML PIGGYBACK 400 MG IV (06:33)
--- NOTE | 2023-11-17 07:14 | P.HPUD_ITS ---
Surgery/Procedure H&P Update DATE OF PROCEDURE: November 17, 2023 DATE H&P PERFORMED: 11/02/23 H&P UPDATE INFORMATION: I have reviewed H&P completed within last 30 days, I have examined patient prior to procedure and No changes to prior documentation CHANGES TO PREVIOUS DOCUMENTATION: Patient states thatShe thinks she has had Keflex in the past. We talked about amoxicillin and the low risk of cross-reactivity with cefazolin. Will plan to proceed with [facility] for antibiotic prophylaxis. PREOP DIAGNOSIS: Left trigger thumb PRIMARY INDICATION FOR PROCEDURE: Left trigger thumb PLANNED PROCEDURE: Operation Date: 11/17/23 07:40 Proposed Procedures p Trigger Finger Release: left thumb trigger release(Left) - Abrahan Alvarado DO
--- NOTE | 2023-11-17 07:51 | P.ANESASSM_ITS ---
Pre-Anesthetic Assessment Height/Weight: Height 1.75 m Weight 78.471 kg Temp Pulse Resp BP Pulse Ox O2 Del Method 97.3 F L 77 16 153/111 97 Room Air 11/17/23 06:09 11/17/23 06:09 11/17/23 06:09 11/17/23 06:09 11/17/23 06:09 11/17/23 06:10 Preop Diagnosis: Left trigger thumb Operation Date: 11/17/23 07:40 Proposed Procedures p Trigger Finger Release: left thumb trigger release(Left) - Abrahan Alvarado DO Familial anesthetic complications: none Last intake: Intake Last Liquid Date 11/16/23 Last Liquid Time 23:30 Last Solid Date 11/16/23 Last Solid Time 20:00 Social No alcohol and No tobacco Exam alert, oriented x 3, clear to auscultation bilaterally and regular rate & rhythm Airway Submandibular: within normal limits Cervical ROM: within normal limits Mallampati: Class I Dentition: false (upper and lower plate) Pulmonary None reported CV/HEM None reported Chronic Renal Insufficiency (stage 3) Hepatic None reported GI None reported Metabolic Thyroid Disease and None reported Musc/skel Lower Back Pain and Weakness Hereditary Spastic Parapledgia progressive symptoms prn use of walker, wheel chair frequent falls. diagnosed in last 10 years. Neuropsych Anxiety and Depression Anesthetic Plan ASA status: 3 Anesthesia: MAC Other: discussed need to wake mid-procedure and follow commands per surgeon request. discussed risk benefits and possible need for GA vs. Mac. Medications/Allergies Home Medications Medication Instructions Recorded Confirmed Last Taken Type bupropion HCl 300 mg 24 hr tablet, 300 mg PO DAILY #30 tabs 04/12/23 11/16/23 11/12/23 Rx extended release citalopram 20 mg tablet 20 mg PO DAILY 04/12/23 11/16/23 11/12/23 History hydroxyzine HCl 10 mg tablet 10 mg PO TID PRN anxiety 04/12/23 11/16/23 08/11/23 History lidocaine 5 % topical patch 1 patch transdermal DAILY 04/12/23 11/16/23 11/10/23 History oxybutynin chloride 5 mg tablet 5 mg PO DAILY 04/12/23 11/16/23 09/08/23 History levothyroxine 100 mcg capsule 100 mcg PO DAILY #30 caps 04/13/23 11/16/23 11/12/23 Rx ropinirole 0.5 mg tablet 0.5 mg PO DAILY PRN restless legs 05/06/23 11/16/23 09/08/23 Rx #30 tabs ondansetron 4 mg disintegrating 4 mg PO Q8H PRN nausea and 06/30/23 11/16/23 09/15/23 Rx tablet vomiting #30 tabs sumatriptan succinate 50 mg tablet 50 mg PO ONCE PRN migraine 06/30/23 11/16/23 09/08/23 Rx headache #20 tabs AFO to left and right #1 ea 07/06/23 11/02/23 Unknown Rx tramadol 25 mg tablet 25 mg PO Q6H PRN pain 5 days #30 07/13/23 11/16/23 10/26/23 Rx tabs baclofen 10 mg tablet 10 mg PO TID #90 tabs 08/18/23 11/16/23 11/13/23 Rx sucralfate 1 gram tablet (Carafate) 1 g PO TID #90 tabs 09/24/23 11/16/23 10/26/23 Rx Orthopedic shoes #1 ea 10/05/23 11/02/23 Unknown Rx mupirocin 2 % topical ointment 1 applic topical BID #15 grams 10/20/23 11/16/23 11/16/23 Rx prednisone 20 mg tablet See Rx Instructions .Route 10/20/23 11/16/23 11/02/23 Rx .COMPLEX #14 tabs diazepam 5 mg tablet 5 mg PO PRN 11/16/23 11/16/23 11/10/23 History gabapentin 600 mg tablet 600 mg PO TID 11/17/23 11/17/23 11/17/23 05:30 History Allergies Allergy/AdvReac Type Severity Reaction Status Date / Time amoxicillin Allergy ALGY-Hives Verified 11/17/23 06:05 Current Medications Generic Name Dose Route Start Last Admin Trade Name Freq PRN Reason Stop Dose Admin Sodium Chloride 1,000 mls @ 30 mls/hr 11/17/23 06:00 11/17/23 06:29 Sodium Chloride 0.9% IV 11/18/23 05:59 30 mls/hr .Q24H ABHI Administration PFSH Anesthesia Medical History Liver lesion benign Osteopenia Vitamin B12 deficiency Overactive bladder Chronic kidney disease, stage 3a Hypothyroidism Major depression Paraplegia, 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 Migraine Hypoglycemia she eats every 4 hours daily to keep her BG up. No known cause. Surgical History Hx of cholecystectomy Hx of toe surgery right great toenail removal Hx of hand surgery hx of cyst removal from left hand Hx of hysterectomy for history of cervical cancer Family History Mother Cancer rectal cancer Brother Cancer rectal Father CAD (coronary artery disease) Other Spastic paraplegia Social History Smoking and tobacco/nicotine status: former use of tobacco/nicotine Quit status (tobacco/nicotine): has quit using Former quit date comment: age 51 Alcohol intake: never Substance/Drug Use: current Substance/Drug use frequency: few times a week Other substance/drug use details: julia Lives independently: No Household members: friend(s) Data Anesthesia Cardiac Studies: No Data to Display
[2023-11-17] MEDS: ceFAZolin 2,000 mg SDV 2000 MG IVP (07:57)
[2023-11-17] MEDS: lidocaine 2% INJ 20 mL 5 ML INJECTION (08:11)
[2023-11-17] MEDS: ROPivacaine 0.5% SDV 30 mL 25 MG INJECTION (08:11)
--- NOTE | 2023-11-17 08:18 | W.PM.BPON ---
Date of Procedure: [11/17/2023] Surgeon: [Abrahan Alvarado DO] Visitor Services Associate(s): [None] Procedure(s) performed: [Left trigger thumb release] Findings of the procedure(s): [Patient was found to have left thumb trigger,Underwent left trigger thumb release as planned without issues or complications] Estimated blood loss: [1mL] Specimen(s) removed: None Post-operative diagnosis: Left trigger thumb
--- NOTE | 2023-11-17 08:20 | P.OP_ITS ---
Operative Report Date of procedure: November 17, 2023 Surgeon: Abrahan Alvarado DO Procedure: Preoperative diagnosis: Left trigger thumb Post-op diagnosis: Left?thumb?trigger Procedure done: Left?thumb?trigger?release Surgeon: Abrahan Alvarado DO Estimated blood loss: 1 mL Tourniquet time: 7 minutes Anesthesia: MAC/ local IV fluids: See anesthesia record Complications: None Findings: See operative report narrative Condition: stable Disposition: same day Brief History: Patient presents to the outpatient setting with findings consistent with a Left?thumb?trigger. Patient has been worked up in the outpatient setting and is failed conservative treatment approach.? Patient has a Left?thumb?trigger?that she has tried treating conservatively with recurrence of her?triggering pain.? We talked about treatment options and ultimately patient would like to proceed with a Left?thumb?trigger?release. At this point time I feel this is most appropriate as this is her next best step in treatment option.? We talked about the risk benefits complications and alternatives with surgical nonsurgical treatment options.? Understanding risk of surgery patient agrees to proceed with a Left?thumb?trigger?release. All questions answered. Procedure: Patient was seen evaluated in the preoperative holding area.? Consent was reviewed and signed with patient.? Correct extremity was then marked.? Patient was then seen and evaluated by the anesthesia department once cleared for surgery patient was then taken back to the operative suite patient was placed in supine position and all bony prominences well-padded the patient was properly secured to the bed.? Armboard was applied to the Left upper extremity and the Left upper extremity was then placed with a nonsterile tourniquet to the Left upper arm.? This point time the Left upper extremity was then prepped and draped in standard orthopedic fashion.? A final timeout was performed.? Patient received appropriate preoperative antibiotics. Esmarch tourniquet was used exsanguinate the Left upper extremity and tourniquet was insufflated to 250 mmHg.? I identified patient's MP flexion crease marked appropriate incision transversely across the flexion crease within Africa's lines sharp scalpel incision was made only through skin.? Once this was done I switched to Littler dissection scissors this I then subsequently spread longitudinally in the planes of the digital nerves.? Once these were identified these were protected by my medical claims assistant with Lutherdan retractors.? Next I identified directly over the A1 mikel of the Left?thumb.? This was significantly thickened and identified to be the area of patient's?thumb?triggering.? I used sharp scalpel to incise the A1 mikel and then utilized my medical claims assistant to retract the ability and under loupe magnification released the entirety of the A1 mikel both proximally and distally up to the oblique mikel.? This point time the tendon was then inspected and found to be healthy there was some inflammation around the tendon itself but no evidence of tearing and no need for any debridement.? The Ragnell was used to pull the tendon out of the incision and there was no mechanical?triggering I then took the patient's?thumb?through range of motion no recurrent?triggering was noted.? ?I then let the tourniquet down identified and maintained exact hemostasis with bipolar electrocautery. Anesthesia was able to slowly wake up the patient thereafter follow commands and able to make a full fist flex and extend the thumb with no evidence of triggering. I then thoroughly irrigated the wound bed and then closed the incision with interrupted nylon suture. Incision sites were then dressed with Xeroform 4 x 4's Kerlix Sebas wrap and an John wrap.? Patient was then awakened from anesthesia and taken to PACU in stable condition. Disposition: Patient taken to PACU in stable condition recovering well.? Dressing on in place clean dry and intact.? Patient was receive appropriate discharge instruction as well as pain medication postoperatively.? Patient may be allowed weightbearing as tolerated to the Left hand and encourage range of motion once dressing come down after 72 hours.? Patient to follow-up with me in the office in 2 weeks.? Patient understands and agrees with current plan.? All questions answered.
[2023-11-17] MEDS: TRAMadol 50 mg Tablet PO (09:25)
--- NOTE | 2023-11-17 09:40 | ANE.PACU2 ---
Inpatient post-anesthesia follow up: Airway intact: Yes Vital signs: Temperature 97.2 F Pulse Rate 67 Respiratory Rate 17 Blood Pressure 143/88 Pulse Oximetry 99 Oxygen Delivery Me thod Room Air Oxygen Flow Rate Fraction of Inspir ed Oxygen Hydration adequate: Yes Nausea and vomiting: No Pain level: 1 Mental status: Baseline
== END 2023-11-17 09:42 | disposition home or self-care (01) ==
PROVIDERS: PCP Clinical Nurse Specialist Adult Health; Visit Provider Student in an Organized Health Care Education/Training Program
PROC: (CPT 26055; principal; 2023-11-17 07:40)
DX: M65.312 Trigger thumb, left thumb (principal); E03.9 Hypothyroidism, unspecified; Z87.891 Personal history of nicotine dependence
CPT/HCPCS: 26055; J0131; J0690; J1885; J2704; J2795; J7030

== ENCOUNTER → 2023-12-06 10:10 | Outpatient (BNVA) | payer MEDICARE, MEDICAID, SELFPAY | PROVIDERS: PCP Clinical Nurse Specialist Adult Health; Visit Provider Physician Assistant | DX: Z98.890 Other specified postprocedural states (principal) | CPT/HCPCS: 99024 ==

== ENCOUNTER 2023-12-14 07:44 | Outpatient (RCR) | payer MEDICARE, MEDICAID, SELFPAY | END 2024-01-01 23:59 | disposition home or self-care (01) | LOC: SOT 07:44 | PROVIDERS: Visit Provider Physician Assistant | DX: M65.312 Trigger thumb, left thumb (principal) | CPT/HCPCS: 97022; 97110; 97140; 97165; 97530 ==

== ENCOUNTER → 2023-12-21 10:33 | Outpatient (BNVA) | payer MEDICARE, MEDICAID, SELFPAY | PROVIDERS: PCP Clinical Nurse Specialist Adult Health; Visit Provider Clinical Nurse Specialist Adult Health | DX: R19.7 Diarrhea, unspecified (principal); R63.5 Abnormal weight gain | CPT/HCPCS: 80053; 83880 ==

== ENCOUNTER → 2023-12-22 13:31 | Outpatient (BNVA) | payer MEDICARE, MEDICAID, SELFPAY | PROVIDERS: PCP Clinical Nurse Specialist Adult Health; Visit Provider Clinical Nurse Specialist Adult Health | DX: R19.7 Diarrhea, unspecified (principal) | CPT/HCPCS: 87045; 87177; 87209; 87427; 87449 ==

== ENCOUNTER 2024-01-02 06:00 | Outpatient (RCR) | payer MEDICARE, MEDICAID, SELFPAY | END 2024-01-31 23:59 | disposition home or self-care (01) | LOC: SOT 06:00 | PROVIDERS: PCP Clinical Nurse Specialist Adult Health; Visit Provider Physician Assistant | DX: M65.312 Trigger thumb, left thumb (principal) | CPT/HCPCS: 97022; 97110; G0283 ==

== ENCOUNTER → 2024-01-18 10:51 | Outpatient (BNVA) | payer MEDICARE, MEDICAID, SELFPAY | PROVIDERS: PCP Clinical Nurse Specialist Adult Health; Visit Provider Physician Assistant | DX: Z98.890 Other specified postprocedural states (principal) | CPT/HCPCS: 99024 ==

== ENCOUNTER → 2024-05-01 13:54 | Outpatient (BNVA) | payer MEDICARE, MEDICAID, SELFPAY | PROVIDERS: PCP Clinical Nurse Specialist Adult Health; Visit Provider Clinical Nurse Specialist Adult Health | DX: F32.1 Major depressive disorder, single episode, moderate (principal); E03.8 Other specified hypothyroidism; E87.6 Hypokalemia | CPT/HCPCS: 80048; 82306; 84443 ==

== ENCOUNTER → 2024-05-10 09:40 | Outpatient (BNVA) | payer MEDICARE, MEDICAID, SELFPAY | PROVIDERS: PCP Clinical Nurse Specialist Adult Health; Visit Provider Anesthesiology Pain Medicine | DX: M43.16 Spondylolisthesis, lumbar region (principal); M54.42 Lumbago with sciatica, left side; M54.41 Lumbago with sciatica, right side; G11.4 Hereditary spastic paraplegia; M54.9 Dorsalgia, unspecified; G89.29 Other chronic pain; M48.061 Spinal stenosis, lumbar region without neurogenic claudication; I10 Essential (primary) hypertension | CPT/HCPCS: 99214 ==

== ENCOUNTER → 2024-05-16 14:08 | Outpatient (BNVA) | payer MEDICARE, MEDICAID, SELFPAY | PROVIDERS: PCP Clinical Nurse Specialist Adult Health; Visit Provider Anesthesiology Pain Medicine | DX: M70.61 Trochanteric bursitis, right hip (principal); M70.62 Trochanteric bursitis, left hip; M54.42 Lumbago with sciatica, left side; M54.41 Lumbago with sciatica, right side; M43.16 Spondylolisthesis, lumbar region; M48.061 Spinal stenosis, lumbar region without neurogenic claudication; G11.4 Hereditary spastic paraplegia; G89.29 Other chronic pain | CPT/HCPCS: 20610; 99213; J1010; J3490 ==

== ENCOUNTER → 2024-06-06 12:50 | Outpatient (BNVA) | payer MEDICARE, MEDICAID, SELFPAY | PROVIDERS: PCP Clinical Nurse Specialist Adult Health; Visit Provider Psychiatry & Neurology Neurology | DX: E53.8 Deficiency of other specified B group vitamins (principal); I10 Essential (primary) hypertension; G11.4 Hereditary spastic paraplegia; R29.90 Unspecified symptoms and signs involving the nervous system; R25.2 Cramp and spasm; M79.606 Pain in leg, unspecified; M54.9 Dorsalgia, unspecified; R53.1 Weakness; E55.9 Vitamin D deficiency, unspecified; M54.16 Radiculopathy, lumbar region; M54.42 Lumbago with sciatica, left side; M54.41 Lumbago with sciatica, right side; G89.29 Other chronic pain | CPT/HCPCS: 64483; 64484; 99212; J1100; J3490 ==

== ENCOUNTER → 2024-06-19 12:34 | Outpatient (BNVA) | payer MEDICARE, MEDICAID, SELFPAY | PROVIDERS: PCP Clinical Nurse Specialist Adult Health; Visit Provider Clinical Nurse Specialist Adult Health | DX: F32.1 Major depressive disorder, single episode, moderate (principal); E53.8 Deficiency of other specified B group vitamins; E03.8 Other specified hypothyroidism | CPT/HCPCS: 82607; 84443 ==

== ENCOUNTER → 2024-06-26 07:39 | Outpatient (BNVA) | payer MEDICARE, MEDICAID, SELFPAY | PROVIDERS: PCP Clinical Nurse Specialist Adult Health; Visit Provider Anesthesiology Pain Medicine | DX: M48.061 Spinal stenosis, lumbar region without neurogenic claudication (principal); M43.16 Spondylolisthesis, lumbar region; G89.29 Other chronic pain; M25.559 Pain in unspecified hip; G11.4 Hereditary spastic paraplegia | CPT/HCPCS: 99214 ==

== ENCOUNTER 2024-06-30 08:30 | Outpatient (CLI) | payer MEDICARE, MEDICAID, SELFPAY ==
--- NOTE | 2024-06-30 09:00 | MM_ITS ---
WS: [id number] BILATERAL SCREENING DIGITAL TOMOSYNTHESIS MAMMOGRAM WITH CAD HISTORY: Z12.39 - Encounter for other screening for malignant neop... COMPARISON: 05/27/2023, 05/06/2021 Bilateral CC and MLO views with tomosynthesis and synthetic mammography submitted. Computer aided detection analyzed. Breast composition: There are scattered areas of fibroglandular density. No suspicious masses, microcalcifications or architectural distortion. Bilateral breast masses and calcifications are stable. No architectural distortion. MM/MM scr BI tomosynthesis [id number] IMPRESSION: BI-RADS: 2 - Benign. FOLLOW UP: 1 Year Follow-up
== END 2024-06-30 08:31 | disposition home or self-care (01) ==
PROVIDERS: PCP Clinical Nurse Specialist Adult Health; Visit Provider Clinical Nurse Specialist Adult Health
DX: Z12.31 Encounter for screening mammogram for malignant neoplasm of breast (principal); R92.323 Mammographic fibroglandular density, bilateral breasts; R92.1 Mammographic calcification found on diagnostic imaging of breast; N63.20 Unspecified lump in the left breast, unspecified quadrant; N63.10 Unspecified lump in the right breast, unspecified quadrant
CPT/HCPCS: 77063; 77067

== ENCOUNTER 2024-07-04 14:09 | Oncology outpatient (recurring) (ONCR) | payer MEDICARE, MEDICAID, SELFPAY ==
[2024-07-04 14:23] VITALS: BP 149/98; PULSE 73; RESP 18; TEMP 36.6; O2SAT 98
[2024-07-04] MEDS: cyanocobalamin 1,000 mcg/mL SDV 1000 MCG IM (14:39)
[2024-07-04 14:45] VITALS: BP 147/78; PULSE 74; RESP 18; TEMP 36.6; O2SAT 98
== END 2024-07-31 23:59 | disposition home or self-care (01) ==
PROVIDERS: PCP Clinical Nurse Specialist Adult Health; Visit Provider Psychiatry & Neurology Neurology
DX: E53.8 Deficiency of other specified B group vitamins (principal); Z79.899 Other long term (current) drug therapy
CPT/HCPCS: 96372; J3420

== ENCOUNTER → 2024-08-14 10:07 | Outpatient (BNVA) | payer MEDICARE, MEDICAID, SELFPAY | PROVIDERS: PCP Clinical Nurse Specialist Adult Health; Visit Provider Anesthesiology Pain Medicine | DX: M54.42 Lumbago with sciatica, left side (principal); M54.41 Lumbago with sciatica, right side; G89.29 Other chronic pain; G11.4 Hereditary spastic paraplegia; M54.9 Dorsalgia, unspecified; M48.061 Spinal stenosis, lumbar region without neurogenic claudication; M43.16 Spondylolisthesis, lumbar region; Z87.891 Personal history of nicotine dependence | CPT/HCPCS: 99214 ==

== ENCOUNTER 2024-08-15 10:15 | Outpatient (CLI) | payer MEDICARE, MEDICAID, SELFPAY ==
--- NOTE | 2024-08-15 10:19 | XRR_ITS ---
PROCEDURE INFORMATION: Exam: XR Lumbosacral Spine Exam date and time: 08/15/2024 10:26 AM Age: 59 years old Clinical indication: Low back pain; HX of ovarian cancer; Additional info: M54.50 - low back pain, unspecified TECHNIQUE: Imaging protocol: Radiologic exam of the lumbosacral spine. Views: 4 or 5 views. COMPARISON: MR lumbar spine wo/w con [id number] 07/29/2023 8:35 AM FINDINGS: Bones/joints: There is a slight scoliotic curvature convex right. There is slight retrolisthesis of L1 in relation to L2, L2 in relation to L3 and L3 in relation to L4. No compression fractures are noted. There is disc space narrowing with anterior osteophytes at L1-L2, L2-L3 and L3-L4. There are degenerative changes involving the lower lumbar facets. SI joints are normal. Soft tissues: Unremarkable. XR/XR lumbar spine min 4V [id number] IMPRESSION: 1. Slight scoliotic curvature convex right. 2. Spondylosis.
== END 2024-08-15 10:16 | disposition home or self-care (01) ==
PROVIDERS: PCP Clinical Nurse Specialist Adult Health; Visit Provider Anesthesiology Pain Medicine
DX: M51.369 Other intervertebral disc degeneration, lumbar region without mention of lumbar back pain or lower extremity pain (principal); M43.16 Spondylolisthesis, lumbar region; M25.78 Osteophyte, vertebrae; M47.896 Other spondylosis, lumbar region
CPT/HCPCS: 72110

== ENCOUNTER → 2024-08-16 13:09 | Outpatient (BNVA) | payer MEDICARE, MEDICAID, SELFPAY | PROVIDERS: PCP Clinical Nurse Specialist Adult Health; Visit Provider Anesthesiology Pain Medicine | DX: M79.18 Myalgia, other site (principal); M54.42 Lumbago with sciatica, left side; M54.41 Lumbago with sciatica, right side; G89.29 Other chronic pain; M25.551 Pain in right hip; M25.552 Pain in left hip; G11.4 Hereditary spastic paraplegia; M48.00 Spinal stenosis, site unspecified; M43.10 Spondylolisthesis, site unspecified; M54.9 Dorsalgia, unspecified; Z87.891 Personal history of nicotine dependence | CPT/HCPCS: 20553; 99214; J1010; J3490 ==

== ENCOUNTER → 2024-09-18 10:15 | Outpatient (BNVA) | payer MEDICARE, MEDICAID, SELFPAY | PROVIDERS: PCP Clinical Nurse Specialist Adult Health; Visit Provider Anesthesiology Pain Medicine | DX: M79.18 Myalgia, other site (principal); M54.42 Lumbago with sciatica, left side; M54.41 Lumbago with sciatica, right side; G89.29 Other chronic pain; M25.559 Pain in unspecified hip; G11.4 Hereditary spastic paraplegia; M48.061 Spinal stenosis, lumbar region without neurogenic claudication; M43.16 Spondylolisthesis, lumbar region; M54.9 Dorsalgia, unspecified | CPT/HCPCS: 20553; 99214; J1010; J3490 ==

== ENCOUNTER → 2024-10-25 10:37 | Outpatient (BNVA) | payer MEDICARE, MEDICAID, SELFPAY | PROVIDERS: PCP Clinical Nurse Specialist Adult Health; Visit Provider Podiatrist Foot & Ankle Surgery | DX: L60.3 Nail dystrophy (principal); G11.4 Hereditary spastic paraplegia; M21.371 Foot drop, right foot; M21.372 Foot drop, left foot; E03.8 Other specified hypothyroidism; L84 Corns and callosities | CPT/HCPCS: 11721; 11750 ==

== ENCOUNTER → 2024-10-27 09:37 | Outpatient (BNVA) | payer MEDICARE, MEDICAID, SELFPAY | PROVIDERS: PCP Clinical Nurse Specialist Adult Health | DX: M79.672 Pain in left foot (principal) | CPT/HCPCS: 73630 ==

== ENCOUNTER → 2024-10-31 10:25 | Outpatient (BNVA) | payer MEDICARE, MEDICAID, SELFPAY | PROVIDERS: PCP Clinical Nurse Specialist Adult Health; Visit Provider Podiatrist Foot & Ankle Surgery | DX: S99.922A Unspecified injury of left foot, initial encounter (principal); M79.672 Pain in left foot; W20.8XXA Other cause of strike by thrown, projected or falling object, initial encounter | CPT/HCPCS: 99214 ==

== ENCOUNTER 2024-11-06 07:15 | Oncology outpatient (recurring) (ONCR) | payer MEDICARE, MEDICAID, SELFPAY ==
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
== END 2024-11-30 23:59 | disposition home or self-care (01) ==
LOC: ONCMED 07:16
PROVIDERS: PCP Clinical Nurse Specialist Adult Health; Visit Provider Psychiatry & Neurology Neurology
DX: S99.922A Unspecified injury of left foot, initial encounter (principal); M79.672 Pain in left foot; W20.8XXA Other cause of strike by thrown, projected or falling object, initial encounter; M77.8 Other enthesopathies, not elsewhere classified
CPT/HCPCS: 73700

== ENCOUNTER → 2024-11-09 11:08 | Outpatient (BNVA) | payer MEDICARE, MEDICAID, SELFPAY | PROVIDERS: PCP Clinical Nurse Specialist Adult Health; Visit Provider Podiatrist Foot & Ankle Surgery | DX: L60.0 Ingrowing nail (principal); S92.332D Displaced fracture of third metatarsal bone, left foot, subsequent encounter for fracture with routine healing; X58.XXXD Exposure to other specified factors, subsequent encounter | CPT/HCPCS: 11750; 73630; 99214; J9999 ==

== ENCOUNTER → 2024-11-20 10:15 | Outpatient (BNVA) | payer MEDICARE, MEDICAID, SELFPAY | PROVIDERS: PCP Clinical Nurse Specialist Adult Health; Visit Provider Anesthesiology Pain Medicine | DX: M79.18 Myalgia, other site (principal); M54.40 Lumbago with sciatica, unspecified side; M25.559 Pain in unspecified hip; G11.4 Hereditary spastic paraplegia; M48.00 Spinal stenosis, site unspecified; M43.10 Spondylolisthesis, site unspecified; M54.9 Dorsalgia, unspecified; Z87.891 Personal history of nicotine dependence | CPT/HCPCS: 20553; 99213; J1010; J3490 ==

== ENCOUNTER → 2024-11-23 09:54 | Outpatient (BNVA) | payer MEDICARE, MEDICAID, SELFPAY | PROVIDERS: PCP Clinical Nurse Specialist Adult Health; Visit Provider Podiatrist Foot & Ankle Surgery | DX: L60.0 Ingrowing nail (principal) | CPT/HCPCS: 99213 ==

== ENCOUNTER 2024-12-01 05:00 | Outpatient (CLI) | payer MEDICARE, MEDICAID, SELFPAY | END 2024-12-01 05:01 | LOC: SPT 01-02 08:27 | PROVIDERS: Visit Provider Physician Assistant | DX: M17.12 Unilateral primary osteoarthritis, left knee (principal); M17.11 Unilateral primary osteoarthritis, right knee; Z46.89 Encounter for fitting and adjustment of other specified devices | CPT/HCPCS: 20610; 99213; J3301; J9999 ==

== ENCOUNTER → 2024-12-06 12:43 | Outpatient (BNVA) | payer MEDICARE, MEDICAID, SELFPAY | PROVIDERS: PCP Clinical Nurse Specialist Adult Health; Visit Provider Psychiatry & Neurology Neurology | DX: G11.4 Hereditary spastic paraplegia (principal); I10 Essential (primary) hypertension; E53.8 Deficiency of other specified B group vitamins; M25.561 Pain in right knee; M25.562 Pain in left knee; M25.551 Pain in right hip; M25.552 Pain in left hip; M85.80 Other specified disorders of bone density and structure, unspecified site; R29.90 Unspecified symptoms and signs involving the nervous system; R25.2 Cramp and spasm; M79.606 Pain in leg, unspecified; M54.9 Dorsalgia, unspecified; R53.1 Weakness; E55.9 Vitamin D deficiency, unspecified | CPT/HCPCS: 99212 ==

== ENCOUNTER 2024-12-19 09:17 | Outpatient (RCR) | payer MEDICARE, MEDICAID, SELFPAY | END 2024-12-31 23:59 | disposition home or self-care (01) | LOC: SPT 09:17 | PROVIDERS: Visit Provider Psychiatry & Neurology Neurology | DX: R26.81 Unsteadiness on feet (principal) | CPT/HCPCS: 97110; 97112; 97161 ==

== ENCOUNTER → 2024-12-27 08:09 | Outpatient (BNVA) | payer MEDICARE, MEDICAID, SELFPAY | PROVIDERS: PCP Clinical Nurse Specialist Adult Health; Visit Provider Student in an Organized Health Care Education/Training Program | DX: M25.551 Pain in right hip (principal); M25.552 Pain in left hip; M70.62 Trochanteric bursitis, left hip | CPT/HCPCS: 20610; 73523; 99214; J3301; J3490; J9999 ==

== ENCOUNTER → 2024-12-29 08:07 | Outpatient (BNVA) | payer MEDICARE, MEDICAID, SELFPAY | PROVIDERS: PCP Clinical Nurse Specialist Adult Health; Visit Provider Physician Assistant | DX: M25.561 Pain in right knee (principal); M25.562 Pain in left knee; M25.569 Pain in unspecified knee | CPT/HCPCS: 73560; 73565 ==

== ENCOUNTER 2025-01-01 06:30 | Outpatient (RCR) | payer MEDICARE, MEDICAID, SELFPAY | END 2025-01-22 09:57 | disposition home or self-care (01) | LOC: SPT 06:30 | PROVIDERS: PCP Clinical Nurse Specialist Adult Health; Visit Provider Psychiatry & Neurology Neurology | DX: R26.81 Unsteadiness on feet (principal) | CPT/HCPCS: 97110; 97112 ==

== ENCOUNTER → 2025-01-02 14:21 | Outpatient (BNVA) | payer MEDICARE, MEDICAID, SELFPAY | PROVIDERS: PCP Clinical Nurse Specialist Adult Health; Visit Provider Orthopaedic Surgery | DX: M48.062 Spinal stenosis, lumbar region with neurogenic claudication (principal); G89.29 Other chronic pain | CPT/HCPCS: 72100; 99204 ==

== ENCOUNTER 2025-01-04 14:57 | Outpatient (CLI) | payer MEDICARE, MEDICAID, SELFPAY ==
[2025-01-04 15:34] LABS: Glucose Urine UA Negative (Normal); Nitrate Urine Negative (Negative); Specific Gravity, Urine 1.019 (1.005-1.030)
[2025-01-04 15:37] LABS: Add Urine Microscopic? YES
[2025-01-04 15:38] LABS: Hematocrit 41.8 % (36-47); Hemoglobin 13.30 g/dL (11.27-16.99); Mean Corpuscular HGB Conc 31.8 g/dL (30-55); Mean Corpuscular Hemoglobin 28.5 pg (27-33); Mean Corpuscular Volume 89.7 fl (85-98); Nucleated Red Blood Cells % 0 %; Platelet Count 291 10^3/cmm (157-399); Red Blood Count 4.66 10^6/uL (3.85-5.65); White Blood Count 13.71 10^3/uL (3.29-11.43)
[2025-01-04 15:53] LABS: Alanine Aminotransferase 11 U/L (0-33); Albumin Level 3.9 g/dL (3.5-5.2); Alkaline Phosphatase 87 U/L (35-105); Anion Gap 13.7 (5-19); Aspartate Amino Transferase 9 U/L (0-32); Blood Urea Nitrogen 17 mg/dL (6-20); Calcium 8.7 mg/dL (8.5-10.5); Carbon Dioxide 26 mmol/L (22-29); Chloride 103 mmol/L (98-107); Globulin 2.5 g/dL (1.3-4.6); Glucose 116 mg/dL (65-115); Osmolality Calculated 291 mOsm/kg (285-295); Potassium 3.7 mmol/L (3.5-5.1); Sodium 139 mmol/L (136-145); Total Protein 6.4 g/dL (6.6-8.7)
== END 2025-01-04 14:58 | disposition home or self-care (01) ==
LOC: LAB 15:03
PROVIDERS: PCP Clinical Nurse Specialist Adult Health; Visit Provider Orthopaedic Surgery
DX: Z01.818 Encounter for other preprocedural examination (principal)
CPT/HCPCS: 36415; 80053; 81001; 85025

== ENCOUNTER → 2025-01-22 10:39 | Outpatient (BNVA) | payer MEDICARE, MEDICAID, SELFPAY | PROVIDERS: PCP Clinical Nurse Specialist Adult Health; Visit Provider Anesthesiology Pain Medicine | DX: M79.18 Myalgia, other site (principal); M48.00 Spinal stenosis, site unspecified; M43.10 Spondylolisthesis, site unspecified; G89.29 Other chronic pain; M25.559 Pain in unspecified hip | CPT/HCPCS: 20553; 99214; J1010; J3490 ==

== ENCOUNTER 2025-01-31 07:27 | Outpatient (CLI) | payer MEDICARE, MEDICAID, SELFPAY ==
--- NOTE | 2025-01-31 08:00 | MR_ITS ---
WS: [id number] MRI LUMBAR SPINE NONCONTRAST TECHNIQUE: Sagittal T1, T2 and STIR imaging. Axial T1 and T2 imaging. CLINICAL INFORMATION: Back pain COMPARISON: 07/29/2023 FINDINGS: Mild lumbar curve. No acute compression. Slight retrolisthesis L1 on L2 L2 on L3 and L3 on L4. L1-L2: Mild annular bulging. Moderate facet arthropathy. Spinal canal and foramen are patent. L2-L3: Mild disc bulging with retrolisthesis. Moderate facet arthropathy. Moderate narrowing of the thecal sac with impingement of the subarticular recess bilaterally. Prominent epidural fat. Mild RIGHT foraminal narrowing. L3-L4: Slight retrolisthesis. Mild annular bulging. Impingement RIGHT subarticular recess. Mild RIGHT foraminal narrowing. Mild to moderate narrowing of the thecal sac. L4-L5: Mild annular bulging with a tiny annular fissure. Moderate narrowing of the thecal sac with impingement on the RIGHT greater than LEFT traversing L5 nerve roots. Moderate facet arthropathy ligamentum flavum hypertrophy. Prominent epidural fat contributes to thecal sac narrowing. LEFT lateral disc osteophyte protrusion slightly impinges the exiting LEFT L4 nerve root laterally. L5-S1: Mild annular bulging. Moderate facet arthropathy. Spinal canal and foramen are patent. Bilateral renal cysts. MR/MR lumbar spine wo con* [id number] IMPRESSION: Overall no significant change compared to previous 1. Mild lumbar curve. Slight retrolisthesis L1 on L2, L2 on L3, and L3 on L4. This is similar to previous. 2. Moderate narrowing of the thecal sac L2-L3 with mild narrowing L3-L4 and mo derate narrowing L4-L5. This is due to disc bulging examination facet arthropat hy and ligamentum flavum hypertrophy with prominent epidural fat. 3. Small LEFT foraminal protrusion L4-5 with slight impingement on the exiting LEFT L4 nerve root laterally. 4. Moderate facet arthropathy L4-L5 and L5-S1.
== END 2025-01-31 07:28 | disposition home or self-care (01) ==
LOC: RAD 07:27
PROVIDERS: PCP Clinical Nurse Specialist Adult Health; Visit Provider Orthopaedic Surgery
DX: M48.061 Spinal stenosis, lumbar region without neurogenic claudication (principal)
CPT/HCPCS: 72148

== ENCOUNTER 2025-02-01 13:10 | Observation (INO) | payer MEDICARE, MEDICAID, SELFPAY ==
--- OUTSIDE RECORDS SUMMARY | 2024-02-26 04:00 | XMS_ITS ---
Author Organization [facility] Address [address] [place] [address] Care Team Providers Care Ship Purser Name Role Phone César Clemons APRN Primary Care Provider Virginiai Pelon Conner Unavailable [phone] Migration, Provider Unavailable Unavailable REASON FOR VISIT EMR-Cesar Encounters Encounter Location Date Provider Diagnosis Migrated_Facility 0 0 02/26/2024 Provider Migration Plan Of Treatment No Information Progress Notes * Aman WINKLEROB:1965 (59 yo F)Acc No.[id number]:02/26/2024 Patient: Joaquin SETHI Rosio :1965 A ge:58 Y S ex:Female Address:[address] [place] [address] [address] , [place], [address] Subjective: * Chief Complaints: * E MR-Cesar * * Date:
--- OUTSIDE RECORDS SUMMARY | 2024-02-27 04:00 | XMS_ITS ---
Author Organization [facility] Address [address] [place] [address] Care Team Providers Care Operations Leader Name Role Phone César Clemons APRN Primary Care Provider Virginiai Pelon Conner Unavailable [phone] Migration, Provider Unavailable Unavailable REASON FOR VISIT EMR-Cesar Encounters Encounter Location Date Provider Diagnosis Migrated_Facility 0 0 02/27/2024 Provider Migration Plan Of Treatment No Information Progress Notes * Aman WINKLEROB:1965 (59 yo F)Acc No.[id number]:02/27/2024 Patient: Joaquin SETHI Rosio :1965 A ge:58 Y S ex:Female Address:[address] [place] [address] [address] , [place], [address] Subjective: * Chief Complaints: * E MR-Cesar * * Date:
[2025-02-01] VITALS (7 sets, daily range): BP systolic 106–154; BP diastolic 72–101; PULSE 64–98; RESP 16–18; TEMP 36.7–36.8; O2SAT 92–97; BMI 30.4
--- NOTE | 2025-02-01 13:22 | ECG_ITS ---
[email or web address]25[facility]01 Pat Name: Rosio Walters Department: Room: Gender: Female [employer] [place]: : 1965 Requested By: Cyrus Oliveros Order Number: [id number] Ramon MD: Patsy Schwartz M.D. Measurements Intervals Boyce Rate: 93 P: 47 FL: 175 QRS: -11 QRSD: 92 T: 49 QT: 349 QTc: 435 Interpretive Statements SINUS RHYTHM WITH OCCASIONAL VENTRICULAR PREMATURE COMPLEXES NONSPECIFIC T-WAVE ABNORMALITY Compared to ECG 06/29/2023 13:11:30 Ventricular premature complex(es) now present Sinus arrhythmia no longer present T-wave abnormality still present Electronically Signed On 02-01-2025 18:46:35 CDT by Patsy Schwartz M.D. [email or web address]
--- OUTSIDE RECORDS SUMMARY | 2025-02-01 13:33 | XMS_ITS | Patient Health Record ---
Author Organization [facility] Address [address] [place] [address] Care Team Providers Care Icer Machine Operator Name Role Phone César Clemons APRN Primary Care Provider Pelon Kumar Unavailable [phone] Thelma Guy Unavailable [phone] Migration, Provider Unavailable Unavailable Allergies Allergen (clinical drug ingredient) Drug/Non Drug Allergy documented on EMR Reaction Allergy Type Onset Date Status amoxicillin Amoxicillin Unknown Drug Allergy Act heladio Latex Latex Unknown Allergy Active Reason For Referral No Information Medications Medication SIG (Take, Route, Frequency, Duration) Notes Start Date End Date Status Gabapentin 600 MG Tablet 1 tablet Orally twice a day Active diazePAM 2 MG Tablet 1 tablet as needed Orally Once a day Active Cyanocobalamin 1000 MCG Tablet 1 tablet Orally Once a day Active tiZANidine HCl 2 MG Tablet 1 tablet at b edtime as needed Orally Once a day Active Citalopram Hydrobromide 20 MG Tablet 1 tablet Orally Once a day Active Sucralfate 1 GM Tablet 1 tablet on an em pty stomach Orally three times a day Active buPROPion HCl ER (XL) 300 MG Tablet Extended Release 24 Hour 1 tablet in the morning Orally Once a day Active rOPINIRole HCl 0.5 MG Tablet 1 tablet 1 to 3 hours before bedtime Orally Once a day Active Baclofen 10 MG Tablet 1 tablet as needed Orally three times a day Active oxyBUTYnin Chloride 5 MG Tablet 1 tablet Orally Once a day Active Pantoprazole Sodium 40 MG Tablet Delayed Release 1 tablet 1/2 to 1 hour before morning meal Orally Once a day Active Losartan Potassium 100 MG Tablet 1 tablet Orally Once a day Active Lidocaine HCl-Glycerin Active Levothyroxine Sodium 112 MCG Tablet 1 tablet in the morning on an empty stomach Orally Once a day Active Social History Tobacco Use: Social History Observation Description Date Details (start date - stop date) Former Smoker NA - NA Social History Tobacco Use: Social Info Question Answer Notes Tobacco Control (Standard) Tobacco use: Former smoker How long has it been since you last smoked? 5-10 years Additional Findings: Tobacco non-user Current no nsmoker Additional Details Category Social Info Options Details Drugs/Alcohol: Do you smoke marijuana? De nies Do you drink alcohol? No Problems Problem Type SNOMED Code ICD Code Onset Dates Problem Status W/U Status Risk Notes Problem Essential hypertension (47229967) Essential hypertension (I10) Active confirmed Problem Gastroesophageal reflux disease (disorder) (563099453) Chronic GERD (K21.9) Active confirmed Problem History of cholecystectomy (790951034) Status post cholecystectomy (Z90.49) Active confirmed Problem Chronic kidney disease stage 3 (disorder) (422090846) Stage 3 chronic kidney disease, unspecified whether stage 3a or 3b CKD (N18.30) Active confirmed Vital Signs Heart Rate 81 /min 08/30/2024 Temperature 99.3 degrees Fahrenheit 08/30/2024 Respiratory Rate 18 /min 08/30/2024 Height-cm 175.26 cm 08/30/2024 Oximetry 98 % 08/30/2024 Blood pressure diastolic 110 mm Hg 08/30/2024 Weight-kg 89.99 kg 08/30/2024 Height 69 in 08/30/2024 Blood pressure systolic 158 mm Hg 08/30/2024 Weight 198.4 lbs 08/30/2024 BMI 29.3 kg/m2 08/30/2024 Encounters Encounter Location Date Provider Diagnosis [facility] [address] [place] [address] 08/30/2024 Pelon Anderson Chronic GERD K21.9 ; Esophageal dysphagia R13.19 ; Intermittent upper abdominal pain R10.10 ; Status post cholecystectomy Z90.49 ; Family history of colon cancer in mother Z80.0 ; Essential hypertension I10 ; Stage 3 chronic kidney disease, unspecified whether stage 3a or 3b CKD N18.30 and Former smoker Z87.891 Migrated_Facility 0 0 02/27/2024 Provider Migration Migrated_Facility 0 0 02/26/2024 Provider Migration [facility] [address] [place] [address] 10/13/2024 Thelma Guy [facility] [address] [place] [address] 08/30/2024 Thelma Guy Assessments Encounter Date Diagnosis (ICD Code) Assessment Notes Treatment Notes Treatment Clinical Notes Section Notes 08/30/2024 Chronic GERD (ICD-10 - K21.9) Continue pantoprazole 40 mg daily and proceed to EGD to rule out gastric malignancy versus ulceration, rechecking blood pressure to ensure stability ahead of procedure. Obtain abdominal CT results Patient reports understanding and agreement with plan of care 08/30/2024 Esophageal dysphagia (ICD-10 - R13.19) 08/30/2024 Intermittent upper abdominal pain (ICD-10 - R10.10) 08/30/2024 Status post cholecystectomy (ICD-10 - Z90.49) 08/30/2024 Family history of colon cancer in mother (ICD-10 - Z80.0) 08/30/2024 Essential hypertension (ICD-10 - I10) 08/30/2024 Stage 3 chronic kidney disease, unspecified whether stage 3a or 3b CKD (ICD-10 - N18.30) 08/30/2024 Former smoker (ICD-10 - Z87.891) Plan Of Treatment Pending Test Test Name Order Date EGD, Upper GI Diagnostic-[id number] 5 Insurance Providers Payer Name Payer Address Payer Phone Subscriber Number Group Number Insured Name Patient Relationship to Insured Coverage Start Date Coverage End Date [employer] Medicare Replacemen t - PPO [address] [place] [address] [id number] Rosio Walters Self - patient is the insured [place] Medicaid [address] [place] [address] [id number] Rosio Walters Self - patient is the insured Medical (General) History Medical History History ICD Code pneumonia arthritis bladder infections migraine headaches cervical cancer hernia back trouble hypertension hemorrhoids hives bronchitis stroke anxiety colon polyps crohns disease depression fatty liver gerd hypothyroidism ibs kidney stones pancreatitis skiin problems ulcerative collitis spastic paraplegia crps Surgical History Surgery Date(Month/Year) ruptured ovary 2013 gall bladder removed 2017 trigger thumb 2023 volar retinacular cyst hysterectomy 1997
--- OUTSIDE RECORDS SUMMARY | 2025-02-01 13:34 | XMS_ITS | Clinical Summary ---
Author Organization [facility] Address [address] [place] [address] Phone Care Team Providers Care Insurance Legal Assistant Name Role Phone Unavailable Primary Care Provider Unavailabl e Allergies Active Allergy Reactions Criticality Noted Date Comments Amoxicillin Hives High 05/26/2023 Medications baclofen (LIORESAL) 10 mg tablet Take 5 mg by mouth 3 times daily. Active buPROPion HCL (WELLBUTRIN XL) 300 mg Extended Release 24 hour tablet Take 300 mg by mouth daily in the morning. Active citalopram (CeleXA) 20 mg tablet Take 20 mg by mouth daily. Active gabapentin (NEURONTIN) 800 mg tablet Take 800 mg by mouth 3 times daily. Active hydrOXYzine HCL (ATARAX) 10 mg tablet Take 10 mg by mouth 3 times daily as needed for Anxiety. Active levothyroxine 100 mcg tablet Take 100 mcg by mouth daily. Active naproxen (NAPROSYN) 500 mg tablet Take 500 mg by mouth 2 times daily as needed for Pain, Moderate. Active oxyBUTYnin (DITROPAN) 5 mg tablet Take 5 mg by mouth daily. Active rOPINIRole (REQUIP) 0.5 mg tablet Take 0.5 mg by mouth 1 time daily as needed for Other (See Comment). Active Family History Medical History Relation Name Comments Colon Cancer Brother Colon Cancer Mother Relation Name Status Comments Brother Mother Social History Tobacco Use Types Packs/Day Years Used Date Smoking Tobacco: Former Cigarettes Alcohol Use Standard Drinks/Week Comments Not Currently 0 (1 standard drink = 0.6 oz pur e alcohol) Comments Unknown Sex and Gender Information Value Date Recorded Sex Assigned at Not on file Legal Sex Female 1:17 PM GLOBAL PRESIDENT Gender Identity Not on file Sexual Orientation Not on file Last Filed Vital Signs Vital Sign Reading Time Taken Comments Blood Pressure 145/100 06/16/2023 1:12 PM GLOBAL PRESIDENT Pulse 103 06/16/2023 1:12 PM GLOBAL PRESIDENT Temperature 36.8 C (98.2 F) 06/16/2023 1:12 PM GLOBAL PRESIDENT Respiratory Rate 18 06/16/2023 1:12 PM GLOBAL PRESIDENT Oxygen Saturation 98% 06/16/2023 1:12 PM GLOBAL PRESIDENT Inhaled Oxygen Concentration - - Weight 78 kg (172 lb) 06/16/2023 1:12 PM GLOBAL PRESIDENT Height 175.3 cm (5' 9 ) 06/16/2023 1:12 PM GLOBAL PRESIDENT Body Mass Index 25.4 06/16/2023 1:12 PM GLOBAL PRESIDENT Plan of Treatment Health Maintenance Due Date Last Done Comments DTAP/TDAP/TD VACCINES (1 - Tdap) 1984 HEPATITIS B VACCINES (1 of 3 - 19+ 3-dose series) 10/1984 HPV/Cotest (21-29) 1986 CERVICAL CANCER SCREENING 07/08/1995 HPV/Cotest (30-65) 07/08/1995 PAP SMEAR 07/08/1995 BREAST CANCER SCREENING 2005 COLORECTAL SCREENING 2010 Colorectal Cancer Screening 2010 FIT-DNA Q 3 years 2010 FIT/FOBT Q 1 year 2010 Flex Sig/CT Colonography Q 5 years 2010 ZOSTER VACCINE (1 of 2) 07/08/2015 INFLUENZA VACCINE (#1) 2024 Insurance [place]ICAID [place]
--- OUTSIDE RECORDS SUMMARY | 2025-02-01 13:34 | XMS_ITS | Patient Health Record ---
Author Organization [facility] Address [address] [place] [address] Support Name Relationship Address Phone Romeo Rosio Guarantor Unknown [phone] Allergies Allergen (clinical drug ingredient) Drug/Non Drug Allergy documented on EMR Reaction Allergy Type Onset Date Status amoxicillin Amoxicillin Unknown Drug Allergy Act heladio Reason For Referral No Information Medications Medication SIG (Take, Route, Frequency, Duration) Notes Start Date End Date Status diazePAM 5 MG TAKE 1 TABLET BY LAURA TH THREE TIMES A DAY NEEDED Oral; Duration: 10 Active Losartan Potassium-HCTZ 100-12.5 MG TAKE 1/2 TABLET BY MOUTH DAILY Oral; Duration: 90 Active Citalopram Hydrobromide 20 MG Oral; Duration: 90 Active SUMAtriptan Succinate 50 MG Oral; Duration: 9 Active traMADol HCl 50 MG TAKE 1 TABLET BY LAURA TH EVERY 6 HOURS NEEDED FOR 7 DAYS Oral; Duration: 7 Active buPROPion HCl ER (XL) 300 MG Oral; Duration: 90 Active Baclofen 10 MG TAKE 1 TABLET BY LAURA TH THREE TIMES A DAY Oral; Duration: 90 Active rOPINIRole HCl 0.5 MG TAKE 1 TABLET BY M OUTH EVERY EVENING Oral; Duration: 90 Active Gabapentin 600 MG Oral; Duration: 15 Active Meloxicam 7.5 MG TAKE 1 TABLET BY LAURA TH EVERY DAY Oral; Duration: 14 Active Levothyroxine Sodium 75 MCG Oral; Duration: 90 Active Social History Tobacco Use: Social History Observation Description Date Details (start date - stop date) Former Smoker NA - NA Tobacco Use/Smoking Question Answer Notes Are you a former smoker Alcohol Screen (Audit-C) Question Answer Notes Did you have a drink containing alcohol in the p ast year? No Points 0 Interpretation Negative Problems No Known Problems Plan Of Treatment No Information Insurance Providers Payer Name Payer Address Payer Phone Subscriber Number Group Number Insured Name Patient Relationship to Insured Coverage Start Date Coverage End Date DARS [address] [facility] [place] [address] 1 Rosio Walters Self - patient is the insured Medical (General) History Medical History History ICD Code Leg weakness, Foot drop Surgical History Surgery Date(Month/Year) Hysterectomy, left hand cyst, cholecyste ctomy
--- NOTE | 2025-02-01 13:47 | ECG_ITS ---
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 Measurements Intervals [place] Rate: 62 P: 24 IN: 188 QRS: 15 QRSD: 96 T: 39 QT: 412 QTc: 419 Interpretive Statements SINUS RHYTHM Compared to ECG 02/01/2025 13:16:53 Ventricular premature complex(es) no longer present T-wave abnormality no longer present Electronically Signed On 02-01-2025 17:12:04 CDT by Patsy Schwartz M.D. [email or web address]
--- NOTE | 2025-02-01 13:47 | XRR_ITS ---
PROCEDURE INFORMATION: Exam: XR Chest Exam date and time: 02/01/2025 1:48 PM Age: 59 years old Clinical indication: Pain; Shortness of breath; Angina pectoris; Additional info: Cp/sob TECHNIQUE: Imaging protocol: Radiologic exam of the chest. Views: 1 view. COMPARISON: CR XR chest 1V portable [id number] 06/29/2023 11:06 AM FINDINGS: Lungs: Unremarkable. No consolidation. Pleural spaces: Unremarkable. No pleural effusion. No pneumothorax. Heart/Mediastinum: Unremarkable. No cardiomegaly. Bones/joints: Unremarkable. XR/XR chest 1V portable [id number] IMPRESSION: No acute cardiopulmonary process.
[2025-02-01 13:53] LABS: Hematocrit 44.8 % (36-47); Hemoglobin 14.20 g/dL (11.27-16.99); Mean Corpuscular HGB Conc 31.7 g/dL (30-55); Mean Corpuscular Hemoglobin 28.7 pg (27-33); Mean Corpuscular Volume 90.5 fl (85-98); Nucleated Red Blood Cells % 0 %; Platelet Count 245 10^3/cmm (157-399); Red Blood Count 4.95 10^6/uL (3.85-5.65); White Blood Count 7.19 10^3/uL (3.29-11.43)
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
[2025-02-01 14:04] LABS: Troponin(5th) Baseline 7 ng/L (0-10)
[2025-02-01 14:15] LABS: Alanine Aminotransferase 25 U/L (0-33); Albumin Level 4.1 g/dL (3.5-5.2); Alkaline Phosphatase 78 U/L (35-105); Anion Gap 17.2 (5-19); Aspartate Amino Transferase 13 U/L (0-32); Blood Urea Nitrogen 10 mg/dL (6-20); Calcium 9.1 mg/dL (8.5-10.5); Carbon Dioxide 26 mmol/L (22-29); Chloride 100 mmol/L (98-107); Creatinine Clr Calc Pharmacy 67.0210; Globulin 2.5 g/dL (1.3-4.6); Glucose 127 mg/dL (65-115); Lipase 24 U/L (13-60); NT Pro B Type Natriuretic Pept 116 pg/mL (0-125); Osmolality Calculated 289 mOsm/kg (285-295); Potassium 4.2 mmol/L (3.5-5.1); Sodium 139 mmol/L (136-145); Total Protein 6.6 g/dL (6.6-8.7)
[2025-02-01 14:52] LABS: Glucose Urine UA Negative (Normal); Nitrate Urine Negative (Negative); Specific Gravity, Urine 1.005 (1.005-1.030)
[2025-02-01] MEDS: fentaNYL 50 mcg/mL INJ 2mL IVP (15:05)
[2025-02-01 15:06] LABS: Add Urine Microscopic? YES; UA Manual Slide Review YES
[2025-02-01 15:17] LABS: Troponin 5 2HR 6.44 ng/L (0-10)
[2025-02-01 15:18] LABS: Troponin 5 2HR Delta -0.56 ABS# (0-10)
--- NOTE | 2025-02-01 15:44 | ECG_ITS ---
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 Interpretive Statements Lung unchanged pre/post procedure; Intraprocedure shortess of breath; Symptoms resoled by discharge PROCEDURE: At the baseline, the EKG revealed normal sinus rhythm with normal ST Ts.. The baseline heart was 64 bpm with a blood pressue of 149/72 mm of Hg Lexiscan was infused over a period of 20 seconds. A total of 0.4 milligrams of Lexiscan was infused. The stress phase was continued for a total of 5 minutes. Heart rate at the end of the stress phase was 76 bpm with a blood pressure 143/87 mm of Hg. The EKG at the peak infusion revealed no significant changes. Sestamibi was injected 20 seconds after the Lexiscan infusion. Heart rate at the end of the recovery phase was 69 bpm with a blood pressure of 139/88 mm of Hg. CONCLUSION: 1. No significant EKG changes with the LexiScan infusion 2. No LexiScan induced chest pain or cardiac arrhythmia 3. Normal blood pressure and heart rate response 4. Sestamibi/sestamibi perfusion scan pending; see separate report. Electronically Signed On 02-04-2025 20:20:46 CDT by Patsy Schwartz M.D. [email or web address]
--- NOTE | 2025-02-01 15:47 | P.HP_ITS ---
Providers/Chief Complaint 2 Admitting Physician: SANDY LAL --DO Primary Care Provider: César Clemons Chief Complaint: chest pain History of Present Illness Rosio Walters is a 59 year old female who presented with left-sided chest pain radiating into the back at 9/10 pain level and came down to a 6/10 with a nitro that was given. Patient workup in the emergency room was negative for troponin negative for D-dimer patient is with chronic renal failure and obese emergency room PA did call Dr. Romo who had given him order for Dilaudid Plavix and aspirin and instructed the patient to come into the hospital with hospitalist being primary and he will see the patient on consultation. I have seen and evaluated patient the surgery of this patient was somewhat worrisome the chest pain wants midsternal and on the left side when up with a BUN the patient baseline high blood pressure to the 170s over 107 and that is very high for this patient. With this patient decided to come to the emergency room for evaluation and care patient had received 600 mg of Plavix and a 325 mg of aspirin. I have asked for patient to be on nitro paste 1 inch every 6 hours to anterior chest wall. Patient chest pain had gone at the time of my evaluation of the patient except for some still background achy nests to the chest wall. Patient at this time is being admitted to stepdown unit woke up in the emergency room with essentially negative EKG did not show any changes troponin were negative I have made patient n.p.o. after midnight and ordered stress test for Lexiscan this patient had never had any cardiac workup Review of Systems 2 Narrative: System review upon 10 organ review where significant for cardiovascular system with chest pains Medications/Allergies Home Medications ?Medication ?Instructions ?Recorded ?Confirmed ?Last Taken ?Type AFO to left and right #1 ea 07/06/23 02/01/25 Unkn own Rx Orthopedic shoes #1 ea 10/05/23 02/01/25 Unkn own Rx oxybutynin chloride 5 mg tablet 5 mg PO DAILY #90 tabs 04/05/24 02/01/25 02/01/25 08:30 Rx diazepam 5 mg tablet 5 mg PO DAILY PRN anxiety #2 0 tabs 05/01/24 02/01/25 Unknown Rx levothyroxine 112 mcg capsule 112 mcg PO DAILY #30 cap s 1202/01/25 02/01/25 07:00 Rx cyanocobalamin (vitamin B-12) 1,000 mcg IM .Monthly #1 0 mL 06/20/24 02/01/25 Unknown Rx 1,000 mcg/mL injection solution luer lock syringe 1ML #50 ea 06/20/24 02/01/25 Unk nown Rx safety needles 22 gauge x 1 (Easy #50 ea 06/20/2406/27 Unknown Rx Touch FlipLock Needle) losartan 100 mg tablet 100 mg PO DAILY #30 tabs 11/2402/01/25 01/31/25 Rx bupropion HCl 300 mg 24 hr tablet, 300 mg PO DAILY #30 tabs 10/24/24 02/01/25 02/01/25 Rx extended release silver sulfadiazine 1 % topical 1 applic topical BID 2 weeks #50 11/09/24 02/01/25 Unknown Rx cream grams pantoprazole 40 mg tablet,delayed See Rx Instructions .Route 11/17/24 02/01/25 02/01/25 08:00 Rx release .COMPLEX #180 tabs ropinirole 0.5 mg tablet 0.5 mg PO DAILY PRN restless legs 11/21/24 02/01/25 01/31/25 Rx #30 tabs Cam Boot #1 ea 12/01/24 02/01/25 Unkn own Rx baclofen 10 mg tablet 10 mg PO BID 90 days #180 ta bs 12/06/24 02/01/25 02/01/25 08:00 Rx diclofenac sodium 1.5 % topical 40 drp topical QID #15 0 mL 12/06/24 02/01/25 Unknown Rx drops gabapentin 600 mg tablet See Rx Instructions .Route 0 12/20/24 02/01/25 02/01/25 08:30 Rx .COMPLEX #1,080 tabs left and right knee economy braces #1 ea 12/29/2406/27 Unknown Rx Allergies Allergy/AdvReac Type Severity Reaction Status Date / Time Latex, Natural Rubber Allergy Intermediate ADR-Itching Verified 01/12/25 10:27 amoxicillin Allergy ALGY-Hives Verified 01/12/25 10:27 PFSH Acute 2 PFSH: Medical History Injury of foot, left GERD (gastroesophageal reflux disease) Generalized anxiety disorder Liver lesion benign Osteopenia Vitamin B12 deficiency Overactive bladder Chronic kidney disease, stage 3a Hypothyroidism Major depression Paraplegia, 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 Migraine Hypoglycemia she eats every 4 hours daily to keep her BG up. No known cause. Surgical History Hx of cholecystectomy Hx of toe surgery right great toenail removal Hx of hand surgery hx of cyst removal from left hand Hx of hysterectomy for history of cervical cancer Family History Mother Cancer rectal cancer Brother Cancer rectal Father CAD (coronary artery disease) Other Spastic paraplegia Social History Smoking and tobacco/nicotine status: former use of tobacco/nicotine Quit status (tobacco/nicotine): has quit using Former quit date comment: age 51 Alcohol intake: never Substance/Drug Use: current Substance/Drug use frequency: few times a week Other substance/drug use details: gummies Lives independently: No Household members: friend(s) Vitals/I&O/Wt Last Vital Signs Temp 98.3 F 02/01/25 13:11 Pulse 64 02/01/25 15:05 Resp 16 02/01/25 13:11 BP 136/92 02/01/25 15:05 Pulse Ox 95 02/01/25 15:05 O2 Del Method Room Air 02/01/25 15:05 Weight last 48 hrs Weight 93.44 kg Physical Exam 2 Narrative: General the patient is apprehensive worried about this chest pain but relaxed answering questions and ask him questions HEENT normocephalic atraumatic neck neck is supple cardiovascular heart rate is regular lungs are pretty much clear abdomen is soft nontender nondistended unremarkable extremities are intact no edema has good pulses neurology has no focality lab studies lab studies reviewed and noted. Data 02/01/25 12:53 02/01/25 12:53 Other Labs: SANDY LAL--DO A&P Assessment and plan 1. Chest pain: 2. Obesity: 3. Accelerated hypertension: Plan: #1 Chest pain with radiation into the back - Patient had not had cardiac workup - Admit to stepdown unit - Loaded on Plavix 600 mg along with full aspirin at 325 mg - Nature of Nitropaste to the anterior chest wall Q6 - Avoid beta-talha as patient is going to be going for stress test with Jana -Dr. Decker will follow-up with this patient on consultation - I have ordered echocardiogram and a stress test in the morning #2 History of high blood pressure with accelerated blood pressure in the 170s at home - Patient was hypertensive upon arriving to the emergency room - Seen the blood pressure on my evaluation it was in the 140s by the time I finished with the care of the patient in evaluation in the room and recheck blood pressure was 121/70 - Patient hypertension is very reactive likely secondary to chest pain #3 GI and DVT prophylaxis in place PDMP PDMP Reviewed: Not Reviewed Attestations 2 Medical Necessity Statement*: Patient with chest pain with no cardiac workup in the past is being admitted at this time for cardiology evaluation on consultation Coding Level of Care Code 31778 Diagnoses Chest pain R07.9 Obesity E66.9 Accelerated hypertension I10 Time Spent (min) 50
[2025-02-01] MEDS: nitroglycerin 1 gm/inch oint Pkt 1 INCH TOPICAL (16:06)
[2025-02-01] MEDS: heparin 5,000 unit/mL INJ 1 mL 5000 UNIT SUBCUT (16:06)
--- NOTE | 2025-02-01 16:54 | PC.PHAR ---
Patient has bottles of medication in her purse. Patient took morning meds not afternoon meds.
[2025-02-01 19:33] LABS: Troponin 5 6HR 6.80 ng/L (0-10)
[2025-02-01 19:34] LABS: Troponin 5 6HR Delta -0.20 ng/L (0-12)
--- NOTE | 2025-02-01 19:47 | ECG_ITS ---
[facility] Test Date: 2025-02-01 Pat Name: Rosio Walters Department: Room: 278 Gender: Female Director Transportation: : 1965 Requested By: Pelon Romeo Order Number: [id number] Ramon MD: Patsy Schwartz M.D. Measurements Intervals [place] Rate: 74 P: 52 TX: 201 QRS: 19 QRSD: 94 T: 56 QT: 379 QTc: 423 Interpretive Statements SINUS RHYTHM WITH SINUS ARRHYTHMIA LOW QRS VOLTAGE IN PRECORDIAL LEADS [QRS DEFLECTION < 1.0 mV IN CHEST LEADS] NONSPECIFIC T-WAVE ABNORMALITY Compared to ECG 02/01/2025 14:19:06 Low QRS voltage now present T-wave abnormality now present Electronically Signed On 02-01-2025 23:28:52 CDT by Patsy Schwartz M.D. [id number]
[2025-02-01] MEDS: morphine 4 mg/mL SDV 1 mL IVP (20:59)
[2025-02-02] VITALS (10 sets, daily range): BP systolic 114–156; BP diastolic 76–96; PULSE 64–91; RESP 16–22; TEMP 36.6–36.9; O2SAT 92–97
[2025-02-02] MEDS: morphine 4 mg/mL SDV 1 mL IVP ×3 (01:38→16:30)
[2025-02-02 04:56] LABS: Hematocrit 39.1 % (36-47); Hemoglobin 12.50 g/dL (11.27-16.99); Mean Corpuscular HGB Conc 32.0 g/dL (30-55); Mean Corpuscular Hemoglobin 29.5 pg (27-33); Mean Corpuscular Volume 92.2 fl (85-98); Nucleated Red Blood Cells % 0 %; Platelet Count 224 10^3/cmm (157-399); Red Blood Count 4.24 10^6/uL (3.85-5.65); White Blood Count 7.19 10^3/uL (3.29-11.43)
[2025-02-02] MEDS: heparin 5,000 unit/mL INJ 1 mL 5000 UNIT SUBCUT (05:02)
[2025-02-02 05:20] LABS: Alanine Aminotransferase 19 U/L (0-33); Albumin Level 3.6 g/dL (3.5-5.2); Alkaline Phosphatase 78 U/L (35-105); Anion Gap 13.3 (5-19); Aspartate Amino Transferase 10 U/L (0-32); Blood Urea Nitrogen 12 mg/dL (6-20); Calcium 8.6 mg/dL (8.5-10.5); Carbon Dioxide 27 mmol/L (22-29); Chloride 106 mmol/L (98-107); Creatinine Clr Calc Pharmacy 61.4359; Globulin 2.4 g/dL (1.3-4.6); Glucose 109 mg/dL (65-115); Magnesium 1.9 mg/dL (1.7-2.3); Osmolality Calculated 294 mOsm/kg (285-295); Potassium 4.3 mmol/L (3.5-5.1); Sodium 142 mmol/L (136-145); Total Protein 6.0 g/dL (6.6-8.7)
[2025-02-02 05:41] LABS: Estmated Average Glucose 103; Hemoglobin A1C 5.2 % (4.0-6.0)
[2025-02-02] MEDS: aminophylline 25 mg/mL SDV 20 mL IVP (07:46)
--- NOTE | 2025-02-02 11:24 | P.CONIM_ITS ---
Providers/Reason For Consult 2 Consulting Physician/Specialty*: Dr Sandra Decker, interventional cardiology Reason for Consult*: Chest pain Requesting Physician: Dr Lal Attending Physician: Priya Clay MD Primary Care Provider: César Clemons History of Present Illness History of Present Illness Rosio Walters is a 59 year old female with no previous cardiac history, history of CKD, hypothyroidism, spastic congenital paraplegia, complex regional pain syndrome. She presented to the emergency room yesterday with sharp chest pain predominantly related to left shoulder/arm and some pain in the lower neck posteriorly. She did not have any vomiting or diaphoresis, some shortness of breath noted at the time of the pain. Nitroglycerin given by EMS improved pain but did not resolve it. She still has significant pain with palpation of the left shoulder and scapula, difficulty moving the left arm due to pain. Troponin series 7?>6?>6. No ischemic EKG changes. Blood pressure had been hypertensive at the time of pain which was unusual for her however she notes blood pressure tends to run high at home. Here she has ranged from 115-140 systolic. She had stress test this morning, pending read. Creatinine today 1.2, similar to her baseline 1.0-1.2. No other significant laboratory abnormality. Review of Systems 2 Const: Denies: fever(s), chills, change in weight, fatigue or diaphoresis Eyes: Denies: change in vision ENMT: Denies: epistaxis Card: Denies: chest pain, palpitations, irregular heart rhythm, edema, syncope, pre-syncope, dyspnea on exertion, orthopnea or leg pain with exertion Resp: Denies: dyspnea, productive cough or wheezing GI: Denies: nausea, vomiting, hematemesis, hematochezia or melena : Denies: hematuria Musc: Denies: extremity swelling Jose Miguel/Lymph: Denies: easy bruising or easy bleeding Medications/Allergies Home Medications ?Medication ?Instructions ?Recorded ?Confirmed ?Last Taken ?Type AFO to left and right #1 ea 07/06/23 02/01/25 Unkn own Rx Orthopedic shoes #1 ea 10/05/23 02/01/25 Unkn own Rx oxybutynin chloride 5 mg tablet 5 mg PO DAILY #90 tabs 04/05/24 02/01/25 02/01/25 08:30 Rx diazepam 5 mg tablet 5 mg PO DAILY PRN anxiety #2 0 tabs 05/01/24 02/01/25 Unknown Rx levothyroxine 112 mcg capsule 112 mcg PO DAILY #30 cap s 05/02/24 02/01/25 02/01/25 07:00 Rx cyanocobalamin (vitamin B-12) 1,000 mcg IM .Monthly #1 0 mL 06/20/24 02/01/25 Unknown Rx 1,000 mcg/mL injection solution luer lock syringe 1ML #50 ea 06/20/24 02/01/25 Unk nown Rx safety needles 22 gauge x 1 (Easy #50 ea 06/20/2406/27 Unknown Rx Touch FlipLock Needle) losartan 100 mg tablet 100 mg PO DAILY #30 tabs 11/2402/01/25 01/31/25 Rx bupropion HCl 300 mg 24 hr tablet, 300 mg PO DAILY #30 tabs 10/24/24 02/01/25 02/01/25 Rx extended release silver sulfadiazine 1 % topical 1 applic topical BID 2 weeks #50 11/09/24 02/01/25 Unknown Rx cream grams pantoprazole 40 mg tablet,delayed See Rx Instructions .Route 11/17/24 02/01/25 02/01/25 08:00 Rx release .COMPLEX #180 tabs ropinirole 0.5 mg tablet 0.5 mg PO DAILY PRN restless legs 11/21/24 02/01/25 01/31/25 Rx #30 tabs Cam Boot #1 ea 12/01/24 02/01/25 Unkn own Rx baclofen 10 mg tablet 10 mg PO BID 90 days #180 ta bs 12/06/24 02/01/25 02/01/25 08:00 Rx diclofenac sodium 1.5 % topical 40 drp topical QID #15 0 mL 12/06/24 02/01/25 Unknown Rx drops gabapentin 600 mg tablet See Rx Instructions .Route 0 12/20/24 02/01/25 02/01/25 08:30 Rx .COMPLEX #1,080 tabs left and right knee economy braces #1 ea 12/29/2406/27 Unknown Rx Allergies Allergy/AdvReac Type Severity Reaction Status Date / Time Latex, Natural Rubber Allergy Intermediate ADR-Itching Verified 01/12/25 10:27 amoxicillin Allergy ALGY-Hives Verified 01/12/25 10:27 Current Medications Generic Name Dose Route Start Last Admin Trade Name Freq PRN Reason Stop Dose Admin Aminophylline 25 mg 02/02/25 06:11 02/02/25 07:46 Aminophylline 25 Mg/Ml Sdv 20 Ml IVP 02/03/25 06:10 25 mg Q2M PRN Administration see dose instructions Heparin Sodium (Porcine) 5,000 unit 02/01/25 15:45 02/02/25 05:02 Heparin 5,000 Unit/Ml Inj 1 Ml SUBCUT 5,000 unit Q12H ABHI Administration Sodium Chloride 1,000 mls @ 75 mls/hr 02/01/25 15:45 02/02/25 01:39 Sodium Chloride 0.9% IV 75 mls/hr .[id number] ABHI Administration Morphine Sulfate 4 mg 02/01/25 15:32 02/02/25 09:36 Morphine 4 Mg/Ml Sdv 1 Ml IVP 4 mg Q4H PRN Administration SEVERE PAIN PFSH Acute 2 PFSH: Medical History Injury of foot, left GERD (gastroesophageal reflux disease) Generalized anxiety disorder Liver lesion benign Osteopenia Vitamin B12 deficiency Overactive bladder Chronic kidney disease, stage 3a Hypothyroidism Major depression Paraplegia, 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 Migraine Hypoglycemia she eats every 4 hours daily to keep her BG up. No known cause. Surgical History Hx of cholecystectomy Hx of toe surgery right great toenail removal Hx of hand surgery hx of cyst removal from left hand Hx of hysterectomy for history of cervical cancer Family History Mother Cancer rectal cancer Brother Cancer rectal Father CAD (coronary artery disease) Other Spastic paraplegia Social History Smoking and tobacco/nicotine status: former use of tobacco/nicotine Quit status (tobacco/nicotine): has quit using Former quit date comment: age 51 Alcohol intake: never Substance/Drug Use: current Substance/Drug use frequency: few times a week Other substance/drug use details: julia Lives independently: No Household members: friend(s) Vitals/I&O/Wt Last Vital Signs Temp 98.3 F 02/02/25 08:27 Pulse 72 02/02/25 08:27 Resp 18 02/02/25 09:36 BP 156/96 02/02/25 08:27 Pulse Ox 92 02/02/25 09:36 O2 Del Method Room Air 02/02/25 08:27 O2 Flow Rate 93 02/02/25 01:00 02/01/25 02/02/25 02/02/25 22:59 06:59 14:59 Intake Total 250 / 958.75 708.75 / 958.75 Balance 250 / 958.75 708.75 / 958.75 Weight last 48 hrs Weight 206 lb Weight 206 lb Weight 206 lb Physical Exam 2 Const: COMMON NORMALS: no acute distress and patient oriented x3 GENERAL APPEARANCE: cooperative and comfortable ORIENTATION/CONSCIOUSNESS: Yes awake, Yes oriented to person, Yes oriented to place and Yes oriented to time Chest: COMMONS NORMALS: normal inspection of the chest and normal palpation of entire chest wall CHEST: Yes Symmetrical chest wall rise Resp: COMMON NORMALS: normal respiratory effort, No retractions, No use of accessory muscles and clear to auscultation bilaterally EFFORT & INSPECTION: Yes symmetric chest movement AUSCULTATION: clear to auscultation bilaterally Cardio: COMMON NORMALS: regular rate, regular rhythm, S1 normal heart sound present, S2 normal heart sound present, No gallops present (Cardio), No clicks present (Cardio), No murmurs present (Cardio) and No rub (Cardio) RATE: r egular rate RHYTHM: regular rhythm HEART SOUNDS: S1 normal heart sound present and S2 normal heart sound present PERIPHERAL PULSES: radial pulses present Extremity: COMMON NORMALS: no pedal edema LEFT UPPER EXTREMITY: Yes shoulder joint Left shoulder joint: Yes palpation (Painful) and Yes ROM (Limited by pain) Neuro: COMMON NORMALS: patient oriented x3 and moves all extremities S ENSORIUM/ORIENTATION: Yes oriented to person, Yes oriented to place and Yes oriented to time Data 02/02/25 04:45 02/02/25 04:45 A&P Assessment and plan 1. Chest pain: 2. Accelerated hypertension: Plan: She appears to have non cardiac chest pain and back pain with significant left arm pain. We recommend x ray of the left arm/shoulder, but no other cardiac workup until stress test performed this morning is read. She appears euvolemic, blood pressure is well-controlled at this time. Further plan will be based on results of imaging. PDMP PDMP Reviewed: Not Reviewed Coding Level of Care Code Acute Code for Chg Fwd Diagnoses Chest pain R07.9 Accelerated hypertension I10
--- NOTE | 2025-02-02 15:44 | NMCV_ITS ---
NM amelia perf SPECT r/s* [id number] Ayaz Waltersy Age: 59 Gender: F : 1965 Exam Date: 02/02/2025 06:42 Ordering Phys: Sandy Lal MD Technologist: GISELLE Terry Exam Location: [facility] Indications: cp STRESS TEST Please see separate stress test report in [facility] for full findings IMAGE PROTOCOL Rest/Stress 1 Lexiscan Day Radiopharmaceutical Dose (mCi) Administration Site Administered by Rest: Tc-99m 10.8 IV Fior Castillo, DIGITAL ANALYTICS MANAGER Sestamibi Stress:Tc-99m 32.6 IV Fior Anna, DIGITAL ANALYTICS MANAGER Sestamibi Rest: 02-Feb-2025 60 Discovery 630 Stress: 02-Feb-2025 30 Discovery 630 0.4mg Lexiscan. Supine position only as patient was unable to lay prone. SPECT RESULTS Technical Quality: Good Raw Data Analysis: Normal Image Corrections: No attenuation or motion correction applied Summed Stress Score: 2 Summed Rest Score: 1 Summed Difference Score: 1 PERFUSION FINDINGS Small areas of slightly decreased tracer uptake were noted in the mid inferolateral and apical inferior regions. A subtle area of reversibility was noted in the apical inferior region FUNCTIONAL RESULTS (calculated via Gated SPECT) Stress Image LV EF (%): 59 Stress EDV (mL):90 TID: 0.92 Stress ESV (mL):37 FUNCTIONAL FINDINGS: Segmental wall motion analysis revealing no gross wall motion abnormalities IMPRESSIONS 1. Myocardial perfusion imaging revealing small areas of slightly decreased tracer uptake was noted in the mid inferolateral and apical inferior regions with a subtle area of reversibility in the apical inferior region, suggesting myocardial scarring with a very small area of ischemia in the distribution of the right coronary artery. 2. Normal LV ejection fraction of 59% . 3. LV wall motion analysis revealing no gross wall motion abnormalities. 4. Normal LV volume No similar previous studies are available for comparison Dr Patsy Schwartz MD FAC (Electronically Signed) Final Date: 02 February 2025 12:51 S
--- NOTE | 2025-02-02 15:46 | USCV_ITS ---
Rosio Walters Age: 59 Gender: F : 1965 Exam Date: 02/02/2025 06:00 Ordering Phys: Sandy Lal MD Technologist: Neftali Diop [place] [facility] [place]: chest pain BP: 136 / 92 HR: 67 Rhythm: Sinus Technical Quality: Adequate MEASUREMENTS (Male / Female) Normal Values 2D ECHO LV Diastolic Diameter PLAX 4.7 cm 4.2 - 5.9 / 3.9 - 5.3 cm IVS Diastolic Thickness 0.9 cm 0.6 - 1.0 / 0.6 - 0.9 cm IVS Systolic Thickness 1.3 cm LVPW Diastolic Thickness 1.0 cm 0.6 - 1.0 / 0.6 - 0.9 cm LVPW Systolic Thickness 1.2 cm LVOT Diameter 2.0 cm LV Ejection Fraction 2D Teich 65.3 % LV Ejection Fraction MOD 4C 60.0 % LV Ejection Fraction MOD 2C 65.4 % LV Ejection Fraction 2C AL 64.3 % LA Diameter 3.0 cm RA Systolic Volume 4C AL 23.7 ml RA Systolic Volume 4C MOD 23.2 ml LA Sys Volume AL 48.5 cm cubed LA Sys Volume Index AL 22.5 cm cubed/m squared Aorta at Sinotubular Diameter 2.3 cm IVC Diameter 1.4 cm M-MODE LA Ao Ratio MM 1.5 AV Cusp Separation MM 1.9 cm DOPPLER AV Peak Velocity 119.0 cm/s LVOT Peak Velocity 91.0 cm/s AV Area Cont Eq vti 2.4 cm squared AV Area Cont Eq pk 2.4 cm squared MV Peak Velocity 80.0 cm/s MV Area PHT 5.1 cm squared Mitral E to A Ratio 0.8 TV Peak Velocity 280.5 cm/s TR Peak Velocity 302.0 cm/s TR Peak Gradient 36.5 mmHg TR Mean Velocity 235.0 cm/s TR Mean Gradient 24.0 mmHg TR Velocity Time Integral 96.3 cm PV Peak Velocity 64.0 cm/s RV Ejection Time 0.4 s FINDINGS Left Ventricle Normal left ventricular size and systolic function, EF 60%.abnormal septal motion consistent with conduction abnormality. Grade I/IV diastolic dysfunction (abnormal relaxation filling pattern), normal to mildly elevated filling pressures. Right Ventricle Normal right ventricular size and systolic function. Right Atrium Normal right atrial size. Left Atrium Normal left atrial size. IA Septum Normal appearance of the interatrial septum. Mitral Valve Mild mitral valve regurgitation. Aortic Valve Thickened aortic valve. Tricuspid Valve Trace tricuspid valve regurgitation. Estimated pulmonary artery peak systolic pressure 39 mmHg Pulmonic Valve Trace pulmonary valve regurgitation. Pericardium No pericardial effusion. Aorta Mildly dilated ascending aorta, measuring 3.7 cm in diameter IVC Inferior vena cava not visualized. CONCLUSIONS Normal left ventricular size and systolic function, EF 60%.abnormal septal motion consistent with conduction abnormality. Grade I/IV diastolic dysfunction (abnormal relaxation filling pattern), normal to mildly elevated filling pressures. Mild mitral valve regurgitation. Thickened aortic valve. Trace tricuspid valve regurgitation. Estimated pulmonary artery peak systolic pressure 39 mmHg. Trace pulmonary valve regurgitation. There is no pericardial effusion. There are no intracardiac masses. No similar previous studies are available for comparison Dr Patsy Schwartz MD [facility] (Electronically Signed) Final Date: 02 February 2025 22:03 S
--- NOTE | 2025-02-02 19:10 | PM.DCS ---
Discharge Providers Date of Admission: 02/01/25 15:48 Date of Discharge: February 02, 2025 Attending Provider at Admission: Sandy Lal MD Attending Provider at Discharge: Priya Clay MD Primary Care Provider: César Clemons Diagnoses at Discharge Discharge Diagnosis 1. Chest pain, unspecified type: 2. Accelerated hypertension: Reason for Visit Reason for Visit: chest pain Hospital Course Hospital Course Rosio Walters is a 59 year old female with no previous cardiac history, history of CKD, hypothyroidism, spastic congenital paraplegia, complex regional pain syndrome. She presented to the emergency room yesterday with sharp chest pain predominantly related to left shoulder/arm and some pain in the lower neck posteriorly. She did not have any vomiting or diaphoresis, some shortness of breath noted at the time of the pain. Nitroglycerin given by EMS improved pain but did not resolve it. Troponin series 7?>6?>6. No ischemic EKG changes. She underwent stress test today small areas of slightly decreased tracer uptake was noted in the mid inferolateral and apical inferior regions with a subtle area of reversibility in the apical inferior region, suggesting myocardial scarring with a very small area of ischemia in the distribution of the right coronary artery. Normal LV ejection fraction of 59% .LV wall motion analysis revealing no gross wall motion abnormalities. Findings were discussed with cardiology BLINDSTITCH HEMMER and appeared to be consistent with old changes. She denies any known h/o CAD. She had reproducible abdominal wall tenderness over the LUQ which she states has been ongoing for at least 2 years. SHe has had several CTs in the past without any obvious cause identified. I offered to perfrom a CT abdomen/pelvis today to r/o any acute pathology in this area however patient declined stating that she had several imaging in the past without a disgnosis and this current pain did not appear different than before. Recommended adding ASA 81mg daily however patient states that this is contraindicated with her neurological disorder. She is being discharge dtoday in stable condition at baseline with recommendation to follow up with cardiology as outpatient. Physical Exam Narrative: General: No acute distress, AO x3 HEENT: PERRLA, pupils bilaterally equal and reactive, pallors not present Chest: Normal vesicular breath sounds, no added sounds, equal good air entry bilaterally CVS: S1-S2 regular, no murmurs, no tachycardia, no gallops, no rubs Abdomen: Soft, nontender, no organomegaly, bowel sounds present Neuro: No focal deficits, no facial deformity, AO x3, power 5/5 in all limbs Discharge Data Studies Completed and Pending Completed Studies During Hospitalization Category Date Time Status Cardiac Stress Test MIBI [Sestamibi Stress Test Request Exams 02/01/25 15:44 Draft ] Stat XR chest 1V portable [id number] Stat Exams 02/01/25 13:47 Completed NM amelia perf SPECT r/s* [id number] Routine Nuc Med 02/02/25 15:44 Completed Pending at discharge Category Date Time Status CV. echo complete* [id number] Stat Ultrasound 02/02/25 15:46 Taken Radiology Impressions Chest X-Ray 02/01/25 13:47 IMPRESSION: No acute cardiopulmonary process. Laboratory Results WBC 7.19 10^3/uL (3.29-11.43) 02/02/25 04:45 RBC 4.24 10^6/uL (3.85-5.65) 02/02/25 04:45 Hgb 12.50 g/dL (11.27-16.99) 02/02/25 04:45 Hct 39.1 % (36-47) 02/02/25 04:45 MCV 92.2 fl (85-98) 02/02/25 04:45 MCH 29.5 pg (27-33) 02/02/25 04:45 MCHC 32.0 g/dL (30-55) 02/02/25 04:45 RDW 15.0 % (12.1-15.1) 02/02/25 04:45 Plt Count 224 10^3/cmm (157-399) 02/02/25 04:45 MPV 10.7 fL (7.4-10.4) H 02/02/25 04:45 Neut % (Auto) 53.1 % 02/02/25 04:45 Lymph % (Auto) 33.7 % 02/02/25 04:45 [place] % (Auto) 10.4 % 02/02/25 04:45 Eos % (Auto) 1.3 % 02/02/25 04:45 Baso % (Auto) 0.7 % 02/02/25 04:45 Neut # (Auto) 3.82 10^3/uL (1.8-7.7) 02/02/25 04:45 Lymph # (Auto) 2.4 10^3/uL (0.8-4.8) 02/02/25 04:45 [place]oke # (Auto) 0.8 10^3/uL (0.2-0.9) 02/02/25 04:45 Eos # (Auto) 0.1 10^3/uL (0.0-0.8) 02/02/25 04:45 Baso # (Auto) 0.1 10^3/uL (0.0-0.1) 02/02/25 04:45 Nucleated RBC % (auto) 0 % 02/02/25 04:45 Nucleated RBCs # 0.0 /100WBC 02/02/25 04:45 D-Dimer <= 0.27 ug/mLFEU (0-0.59) 02/01/25 12:53 Sodium 142 mmol/L (136-145) 02/02/25 04:45 Potassium 4.3 mmol/L (3.5-5.1) 02/02/25 04:45 Chloride 106 mmol/L (98-107) 02/02/25 04:45 Carbon Dioxide 27 mmol/L (22-29) 02/02/25 04:45 Anion Gap 13.3 (5-19) 02/02/25 04:45 BUN 12 mg/dL (6-20) 02/02/25 04:45 Creatinine 1.2 mg/dL (0.5-0.9) H 02/02/25 04:45 GFR Calculation 46.0 mL/min (90-130) L 02/02/25 04:45 Glucose 109 mg/dL (65-115) 02/02/25 04:45 Estimat Average Glucose 103 02/02/25 04:45 Hemoglobin A1c 5.2 % (4.0-6.0) 02/02/25 04:45 Calculated Osmolality 294 mOsm/kg (285-295) 02/02/25 04:45 Calcium 8.6 mg/dL (8.5-10.5) 02/02/25 04:45 Phosphorus 4.6 mg/dL (2.5-4.5) H 02/02/25 04:45 Magnesium 1.9 mg/dL (1.7-2.3) 02/02/25 04:45 Total Bilirubin 0.2 mg/dL (0.15-1.2) 02/02/25 04:45 AST 10 U/L (0-32) 02/02/25 04:45 ALT 19 U/L (0-33) 02/02/25 04:45 Alkaline Phosphatase 78 U/L (35-105) 02/02/25 04:45 Troponin T Baseline 7 ng/L (0-10) 02/01/25 12:53 Troponin T 120 Minute 6.44 ng/L (0-10) 02/01/25 14:45 Delta Troponin T -0.56 ABS# (0-10) L 02/01/25 14:45 Troponin T Hi Sens 6Hr 6.80 ng/L (0-10) 02/01/25 18:50 Troponin T Hi Sens 6Hr Delta -0.20 ng/L (0-12) L 02/01/25 18:50 NT-Pro-B Natriuret Pep 116 pg/mL (0-125) 02/01/25 12:53 Total Protein 6.0 g/dL (6.6-8.7) L 02/02/25 04:45 Albumin 3.6 g/dL (3.5-5.2) 02/02/25 04:45 Globulin 2.4 g/dL (1.3-4.6) 02/02/25 04:45 Lipase 24 U/L (13-60) 02/01/25 12:53 Urine Color Yellow (Yellow) 02/01/25 14:36 Urine Appearance Clear (CLEAR) 02/01/25 14:36 Urine pH 6.0 (5-7) 02/01/25 14:36 Ur Specific [place] 1.005 (1.005-1.030) 02/01/25 14:36 Urine Protein Negative (Negative) 02/01/25 14:36 Urine Glucose (UA) Negative (Normal) 02/01/25 14:36 Urine Ketones Negative (Negative) 02/01/25 14:36 Urine Blood Trace (Negative) A 02/01/25 14:36 Urine Nitrate Negative (Negative) 02/01/25 14:36 Urine Bilirubin Negative (Negative) 02/01/25 14:36 Urine Urobilinogen 0.2 mg/dL (Negative) 02/01/25 14:36 Ur Leukocyte Esterase Negative (Negative) 02/01/25 14:36 Urine RBC 0-4 /hpf (0-2) H 02/01/25 14:36 Urine WBC 0-4 /hpf (0-5) H 02/01/25 14:36 Ur Squamous Epith Cells 0-4 /hpf (0-5) H 02/01/25 14:36 Amorphous Sediment Not Reportable 02/01/25 14:36 Urine Bacteria Trace /hpf (NONE) 02/01/25 14:36 Vitals Last Vital Signs Temp 97.8 F 02/02/25 16:00 Pulse 65 02/02/25 16:00 Resp 18 02/02/25 16:30 BP 156/88 02/02/25 16:00 Pulse Ox 95 02/02/25 16:30 O2 Del Method Room Air 02/02/25 16:00 O2 Flow Rate 93 02/02/25 01:00 Discharge Plan Discharge Patient Disposition: Home Condition: Stable Prescriptions: Continued (DME) AFO to left and right See Rx Instructions .Route .MEDSUPPLY Qty: 1 0RF Rx Instructions: As directed by [employer] ([facility] [place] [facility] [place] Orthopedic shoes See Rx Instructions .Route .MEDSUPPLY Qty: 1 0RF Rx Instructions: As directed by HOME diclofenac sodium 1.5 % drops 40 drp topical QID Qty: 150 3RF baclofen 10 mg tablet 10 mg PO BID 90 Days Qty: 180 3RF silver sulfadiazine 1 % cream 1 applic topical BID 14 Days Qty: 50 2RF Rx Instructions: apply a 1.5 mm thickness (DME) left and right knee economy braces See Rx Instructions .Route .MEDSUPPLY Qty: 1 0RF Rx Instructions: As directed diazepam 5 mg tablet 5 mg PO DAILY PRN (Reason: anxiety) Qty: 20 0RF oxybutynin chloride 5 mg tablet 5 mg PO DAILY Qty: 90 3RF levothyroxine 112 mcg capsule 112 mcg PO DAILY Qty: 30 11RF cyanocobalamin (vitamin B-12) 1,000 mcg/mL solution 1,000 mcg IM .Monthly Qty: 10 0RF (DME) Easy Touch FlipLock Needle 22 gauge x 1 needle See Rx Instructions .Route Qty: 50 0RF Rx Instructions: As directed for use with B 12 injections (DME) luer lock syringe 1ML See Rx Instructions .Route .MEDSUPPLY Qty: 50 0RF Rx Instructions: As directed losartan 100 mg tablet 100 mg PO DAILY Qty: 30 11RF bupropion HCl 300 mg tablet extended release 24 hr 300 mg PO DAILY Qty: 30 11RF pantoprazole 40 mg tablet,delayed release (DR/EC) See Rx Instructions .ROUTE .COMPLEX Qty: 180 3RF Dose Instruction: TAKE 1 BY MOUTH ONCE DAILY Rx Instructions: TAKE 1 BY MOUTH ONCE DAILY ropinirole 0.5 mg tablet 0.5 mg PO DAILY PRN (Reason: restless legs) Qty: 30 3RF (DME) Cam Boot small See Rx Instructions .Route .MEDSUPPLY Qty: 1 0RF Rx Instructions: As directed gabapentin 600 mg tablet See Rx Instructions .ROUTE .COMPLEX Qty: 1080 0RF Dose Instruction: TAKE 2 TABLETS BY MOUTH THREE TIMES DAILY FOR 30 DAYS Rx Instructions: TAKE 2 TABLETS BY MOUTH THREE TIMES DAILY FOR 30 DAYS Discharge Order = DC NOW: Discharge Order (Routine); Ordered 02/02/25 Ordered By: Priya Clay Referrals: César Clemons NP [Primary Care Provider, Family Practice] - 02/12/25 1:00 pm Cristiana Hinson FNP [Nurse Practitioner, Cardiology] - 2 weeks Referral Note: f/up post stress test Patient Instructions: Chest Pain (DC), Chest Pain Stoplight, Opioid Safety, Patient Portal & Yaa Instructions Discharge Attestations Time Spent in Discharge Care*: greater than 30 min Quality Metrics Clinical Quality Measures [ No reported AMI, CVA or VTE this stay] Coding Level of Care Code Acute Code for [facility] Fwd Diagnoses Chest pain, unspecified type R07.9 Chest pain type: unspecified Accelerated hypertension I10
== END 2025-02-02 17:15 | disposition home or self-care (01) ==
LOC: ER 15:29 → ER IP 15:48 → MEDSURG 18:41
PROVIDERS: Admitting Provider Internal Medicine; Emergency Provider Physician Assistant; PCP Clinical Nurse Specialist Adult Health; Visit Provider Student in an Organized Health Care Education/Training Program
DX: R07.9 Chest pain, unspecified (principal); I12.9 Hypertensive chronic kidney disease with stage 1 through stage 4 chronic kidney disease, or unspecified chronic kidney disease; N18.31 Chronic kidney disease, stage 3a; K21.9 Gastro-esophageal reflux disease without esophagitis; E03.9 Hypothyroidism, unspecified; F41.8 Other specified anxiety disorders; G11.4 Hereditary spastic paraplegia; E16.2 Hypoglycemia, unspecified; Z87.891 Personal history of nicotine dependence
CPT/HCPCS: 36415; 71045; 78452; 80053; 81001; 83036; 83690; 83735; 83880; 84100; 84484; 85025; 85378; 93005; 93017; 93306; 96361; 96372; 96374; 96375; 99285; A9500; G0378; J0280; J1644; J2270; J2785; J3010; J7030; J7050; J9999

== ENCOUNTER → 2025-02-08 15:41 | Outpatient (BNVA) | payer MEDICARE, MEDICAID, SELFPAY | PROVIDERS: PCP Clinical Nurse Specialist Adult Health; Visit Provider Orthopaedic Surgery | DX: M48.061 Spinal stenosis, lumbar region without neurogenic claudication (principal); Z09 Encounter for follow-up examination after completed treatment for conditions other than malignant neoplasm | CPT/HCPCS: 99214 ==

== ENCOUNTER 2025-02-15 15:29 | Outpatient (CLI) | payer MEDICARE, MEDICAID, SELFPAY ==
[2025-02-15 16:15] LABS: Hematocrit 40.4 % (36-47); Hemoglobin 12.80 g/dL (11.27-16.99); Mean Corpuscular HGB Conc 31.7 g/dL (30-55); Mean Corpuscular Hemoglobin 28.4 pg (27-33); Mean Corpuscular Volume 89.6 fl (85-98); Nucleated Red Blood Cells % 0 %; Platelet Count 246 10^3/cmm (157-399); Red Blood Count 4.51 10^6/uL (3.85-5.65); White Blood Count 7.12 10^3/uL (3.29-11.43)
[2025-02-15 16:44] LABS: Add Urine Microscopic? YES
[2025-02-15 17:31] LABS: Alanine Aminotransferase 15 U/L (0-33); Albumin Level 4.0 g/dL (3.5-5.2); Alkaline Phosphatase 88 U/L (35-105); Anion Gap 18.2 (5-19); Aspartate Amino Transferase 13 U/L (0-32); Blood Urea Nitrogen 16 mg/dL (6-20); Calcium 9.1 mg/dL (8.5-10.5); Carbon Dioxide 24 mmol/L (22-29); Chloride 105 mmol/L (98-107); Globulin 2.6 g/dL (1.3-4.6); Glucose 113 mg/dL (65-115); Osmolality Calculated 298 mOsm/kg (285-295); Potassium 4.2 mmol/L (3.5-5.1); Sodium 143 mmol/L (136-145); Total Protein 6.6 g/dL (6.6-8.7)
== END 2025-02-15 15:30 | disposition home or self-care (01) ==
LOC: LAB 15:30
PROVIDERS: PCP Clinical Nurse Specialist Adult Health; Visit Provider Orthopaedic Surgery
DX: M54.9 Dorsalgia, unspecified (principal); M85.80 Other specified disorders of bone density and structure, unspecified site
CPT/HCPCS: 36415; 80053; 81001; 82306; 85025; 87086

== ENCOUNTER → 2025-02-27 16:09 | Outpatient (BNVA) | payer MEDICARE, MEDICAID, SELFPAY | PROVIDERS: PCP Clinical Nurse Specialist Adult Health; Visit Provider Family Medicine | DX: Z01.818 Encounter for other preprocedural examination (principal); N28.1 Cyst of kidney, acquired | CPT/HCPCS: 81000; 87086 ==

== ENCOUNTER → 2025-03-19 08:24 | Outpatient (BNVA) | payer MEDICARE, MEDICAID, SELFPAY | PROVIDERS: PCP Clinical Nurse Specialist Adult Health; Visit Provider Anesthesiology Pain Medicine | DX: M79.18 Myalgia, other site (principal); M48.00 Spinal stenosis, site unspecified; M43.10 Spondylolisthesis, site unspecified; M54.9 Dorsalgia, unspecified; M25.559 Pain in unspecified hip; G89.29 Other chronic pain | CPT/HCPCS: 20553; 99214; J1010; J3490 ==

== ENCOUNTER → 2025-04-03 08:17 | Outpatient (BNVA) | payer MEDICARE, MEDICAID, SELFPAY | PROVIDERS: PCP Clinical Nurse Specialist Adult Health; Visit Provider Student in an Organized Health Care Education/Training Program | DX: M70.62 Trochanteric bursitis, left hip (principal) | CPT/HCPCS: 20610; 99213; J3301; J3490; J9999 ==

== ENCOUNTER 2025-04-05 05:52 | Outpatient (CLI) | payer MEDICARE, MEDICAID, SELFPAY ==
[2025-04-05] VITALS (21 sets, daily range): BP systolic 100–183; BP diastolic 59–111; PULSE 65–83; RESP 12–20; TEMP 37; O2SAT 91–94; BMI 31.3
[2025-04-05 06:32] LABS: Hematocrit 40.6 % (36-47); Hemoglobin 13.30 g/dL (11.27-16.99); Mean Corpuscular HGB Conc 32.8 g/dL (30-55); Mean Corpuscular Hemoglobin 29.4 pg (27-33); Mean Corpuscular Volume 89.6 fl (85-98); Nucleated Red Blood Cells % 0 %; Platelet Count 266 10^3/cmm (157-399); Red Blood Count 4.53 10^6/uL (3.85-5.65); White Blood Count 9.42 10^3/uL (3.29-11.43)
[2025-04-05 06:52] LABS: Anion Gap 13.6 (5-19); Blood Urea Nitrogen 17 mg/dL (6-20); Calcium 9.1 mg/dL (8.5-10.5); Carbon Dioxide 27 mmol/L (22-29); Chloride 104 mmol/L (98-107); Glucose 103 mg/dL (65-115); Osmolality Calculated 294 mOsm/kg (285-295); Potassium 3.6 mmol/L (3.5-5.1); Sodium 141 mmol/L (136-145)
--- NOTE | 2025-04-05 07:00 | XACV_ITS ---
Exam Room: 2 Ht: 175 cm Wt: 96 kg BSA: 2.19 m2 Gender: Female : 1965 Any Known Allergies: Other Exam Priority: Routine Procedure(s): Procedure Description: Diagnostic procedure Procedure Description: Coronary Angiography PEDRITO, Jeronimo; Diagnostic Cath Status: Elective Diagnostic Findings * No disease noted in the Left Main, Left Anterior Descending, Right, or Circumflex coronary arteries. * Coronary angiography shows right dominance. Conclusions 1. No disease noted in the Left Main, Left Anterior Descending, Right, or Circumflex coronary arteries. Recommendations * Continue current medical management and risk factor modification. Diagnostic RX Recommendation: none Pressures Phase:Rest AO : / ( 3 ) @ 7:40:00 AM 159 / 102 ( 113 ) @ 7:43:00 AM Clinical Evaluation EBL: 5mL-10mL Procedural Details Procedure Consent Obtained. Pre-Procedure Time Out. Identified patient by full name and date of as verbalized by the patient/guarantor. Does the consent match the physician's order: Yes. Accurate & Complete Informed Consent: Yes. Inpatient/Outpatient History & Physical on Chart: Yes. If H&P is completed, is and addenduem needed: No; If yes, is the addendum complete: N/A. Visualize and Verify Site with Patient/Guarantor: N/A. Relevant Radiology Images available: Yes. Pre-op teaching completed and patient verbalized understanding. The risks, benefits, and alternatives of sedation and/or procedure were discussed by physician. The patient agrees to continue. Procedure started. Physician arrived. [facility] Clinical Fraility Score: 4: Vulnerable. 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 Chest Pain Symptom Assessment: Atypical Angina. Correct patient, site and procedure confirmed by cath team. Current diagnosis: Chest Pain. PERRLA. Strong, equal hand manufacturing engineering professor bilaterally. Lungs clear x 5 lobes. IV Site on Arrival: 20 gauge in the right anticubital. IV Fluids: 0.9% NaCl at KVO. 0 mL infused prior to cathead operator. Pre Procedural Pulses: bilateral dorsalis pedis was 1+. Pre Procedural Pulses: bilateral posterior tibial was Doppled. Pre Procedural Pulses: bilateral radial was 2+. Oxygen started at 2liters/min via nasal canula. right groin was prepped with chloroprep then draped in the usual sterile fashion. right radial was prepped with chloroprep then draped in the usual sterile fashion. Baseline sample Acquired. HR: 61 BPM. Physician scrubbed in. Immediate Pre-Procedure Time Out. Correct Patient: Yes; Correct Procedure: Yes; Correct Site: Yes; Correct Patient Position: Yes; Correct Supplies: Yes; Dried Flammable Prep: Yes; Blood Products Available: N/A;. Lidocaine 1% infiltrated to the right radial. Arterial access obtained. A 5 guinean TIG catheter in over wire. Multiple views taken of left coronary artery. Catheter removed over the exchange wire. A 5 guinean JR4 catheter in over wire. Multiple views taken of right coronary artery. Catheter removed over the exchange wire. Physician scrubbed out. A TR Band was successful obtaining hemostatsis at the Right Radial artery insertion site. Vital chart was stopped. Post Procedure: Pulses reassessed and unchanged. PERRLA. Strong, equal hand manufacturing engineering professor bilaterally. No VTE prophylaxis required. Medication's Wasted: Lidocaine 1% = 18 mL. Medication's Wasted: Nitro = 49.8 mcg. Medication's Wasted: Other = Fentanyl 25 mcg. Total IV fluids: 20 mL. Post-op diagnosis: Non-obstructive CAD. Complications: None. Estimated blood loss: 5mL-10mL. Responsiveness - Normal response to verbal stimuli; alert and oriented, PERRLA. Medication's Wasted: Other = Hydralazine 10 mg. Airway - Unaffected, no intervention required; spontaneous ventilation. Circulation: W/N/L, pulses unchanged. Nausea/Vomiting: No. Procedure completed. Patient transferred by stretcher to CPRU. Access Site Site: Right Radial artery Sheath Size: 6 Fr Hemostasis Method: TR Band Hemostasis Success: Successful Procedure Medications Start: 7:28 AM Stop: 7:28 AM Medication: Versed Amount: 1 mg Route: I.V. Start: 7:28 AM Stop: 7:28 AM Medication: Fentanyl Amount: 50 mcg Route: I.V. Start: 7:38 AM Stop: 7:38 AM Medication: Versed Amount: 1 mg Route: I.V. Start: 7:38 AM Stop: 7:38 AM Medication: Fentanyl Amount: 25 mcg Route: I.V. Start: 7:40 AM Stop: 7:40 AM Medication: Nitrogylcerin Amount: 200 mcg Route: I.A. Start: 7:43 AM Stop: 7:43 AM Medication: Heparin Amount: 5000 units Route: I.V. Start: 7:51 AM Stop: 7:51 AM Medication: Hydralazine Amount: 10 mg Route: I.V. I, the attending physician, have reviewed and verified all procedure medications. Yes, all medications given per verbal order History/Risk Factors Hypertension: Yes Dyslipidemia: No Peripheral Arterial Disease (PAD): No Myocardial Infarction (MD): No Obesity: Yes Renal Disease: No Tobacco Use: Former Prior Interventions PCI: No CABG: No Valve Surgery: No Report Signatures Finalized by Elisha Decker MD on 04/05/2025 08:19 AM
--- NOTE | 2025-04-05 07:22 | W.PM.OPSFHP ---
Same Day Surgery H&P Indication for Procedure/HPI DATE OF PROCEDURE: April 05, 2025 CHIEF COMPLAINT/INDICATIONFOR SURGICAL PROCEDURE: Abnormal stress test Chest pain despite optimization meds PREOP DIAGNOSIS: Chest pain/above PLANNED PROCEDURE: Left heart cath/PCI if indicated Operation Date: 04/05/25 07:00 Proposed Procedures p Cardiac Catheterization - [facility] w/wo LV & Coros(Left) - Elisha Decker MD 59-year-old male past medical history significant for hypertension hyperlipidemia history of spastic paralysis with worsening of chest pain radiating to left arm underwent stress test with shows generalized abnormality with reversibility suspicious for multivessel disease versus artifact. Since patient continues to have chest pain on a regular basis we decided to proceed with left heart cath. Medications/Allergies* Home Medications ?Medication ?Instructions ?Recorded ?Confirmed ?Type gabapentin 600 mg tablet 1,200 mg PO TID 04/04/25 04/05/25 History pantoprazole 40 mg tablet,delayed 40 mg PO DAILY 04/04/25 04/05/25 History release Allergies/Adverse Reactions Allergy/AdvReac Type Severity Reaction Status Date / Time Latex, Natural Rubber Allergy Intermediate ADR-Itching Verified 04/03/25 08:41 amoxicillin Allergy ALGY-Hives Verified 04/03/25 08:41 succinylcholine Allergy Unknown Verified 04/05/25 06:42 Current Medications: Generic Name Dose Route Start Last Admin Trade Name Freq PRN Reason Stop Dose Admin Sodium Chloride 1,000 mls @ 50 mls/hr 04/05/25 06:00 04/05/25 06:34 Sodium Chloride 0.9% IV 04/06/25 01:59 Not Given .Q20H ONE Pertinent History/Comorbid Conditions* Medical History (Updated 02/28/25 @ 07:51 by Jefe Maecdo MD) Vitamin D deficiency Injury of foot, left GERD (gastroesophageal reflux disease) Generalized anxiety disorder Liver lesion benign Osteopenia Vitamin B12 deficiency Overactive bladder Chronic kidney disease, stage 3a Hypothyroidism Major depression Paraplegia, 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 Migraine Hypoglycemia she eats every 4 hours daily to keep her BG up. No known cause. Surgical History (Updated 12/06/23 @ 10:54 by JAMA Jacinto) Hx of cholecystectomy Hx of toe surgery right great toenail removal Hx of hand surgery hx of cyst removal from left hand Hx of hysterectomy for history of cervical cancer Family History (Updated 04/12/23 @ 12:01 by César Clemons NP) CAD (coronary artery disease) Father Spastic paraplegia Cancer Mother rectal cancer Brother rectal Social History Smoking and tobacco/nicotine status: never used tobacco/nicotine Quit status (tobacco/nicotine): has quit using Former quit date comment: age 51 Alcohol intake: never Substance/Drug Use: current Substance/Drug use frequency: few times a week Other substance/drug use details: julia Lives independently: No Household members: friend(s) Pertinent Exam Findings alert, oriented x 3, clear to auscultation bilaterally, regular rate & rhythm, operative site marked and procedure specific exam findings Conscious Sedation Assessment PATIENT ASSESSED PRIOR TO SEDATION, WITH NO CHANGE NOTED: Yes AIRWAY EVAL/ANESTHESIA PLAN: ASA II and Patient agrees to continue as planned ADDITIONAL INFORMATION: All risk-benefit and alternative for the procedure has been explained to the patient. Patient understand 2% risk of stroke major bleed. Patient restand 5% risk of minor bleeding oozing infection hematoma contrast-induced nephropathy urgent emergent vascular or bypass surgery. Patient agrees to it and would like to proceed with it. Recommendations Other Coding Level of Care Code Acute Code for [facility] Fwd
--- NOTE | 2025-04-05 08:00 | PC.NURSE ---
Arrived to CPRU 2 post cath. Patient awake and oriented, breathing even and non-labored on room air. Denies pain. Placed on bedside monitor car operator. 2 TR bands to right radial. Site asymptomatic, no signs of bleeding or hematoma. Radial pulse palpable. Family at bedside, call light in reach.
--- NOTE | 2025-04-05 13:13 | PC.NURSE ---
TR band removal note Started releasing air from 2nd TR band at 0900. 1-3ml air released every 5-15 min. 2nd band deflated at 0945. Started releasing air from primary TR band at 1000. 1-3ml air released every 5-15 minutes until band deflated. TR band deflated at 1115. Mild bruising to site. Patient reports mild tenderness.No signs of bleeding or hematoma. Dressed with clean bandaid.
== END 2025-04-05 13:05 | disposition home or self-care (01) ==
PROVIDERS: PCP Clinical Nurse Specialist Adult Health; Visit Provider Internal Medicine Cardiovascular Disease
DX: R94.39 Abnormal result of other cardiovascular function study (principal); R07.9 Chest pain, unspecified; K21.9 Gastro-esophageal reflux disease without esophagitis; E78.5 Hyperlipidemia, unspecified; I12.9 Hypertensive chronic kidney disease with stage 1 through stage 4 chronic kidney disease, or unspecified chronic kidney disease; N18.31 Chronic kidney disease, stage 3a; E03.9 Hypothyroidism, unspecified; F41.8 Other specified anxiety disorders; E16.2 Hypoglycemia, unspecified; Z82.49 Family history of ischemic heart disease and other diseases of the circulatory system
CPT/HCPCS: 36415; 80048; 85025; 93454; 96374; 99152; 99153; C1769; C1887; C1894; J0360; J1644; J2250; J3010; J3490; J7030; J9999; Q0163; Q9967

== ENCOUNTER → 2025-04-09 14:57 | Outpatient (BNVA) | payer MEDICARE, MEDICAID, SELFPAY | PROVIDERS: PCP Clinical Nurse Specialist Adult Health; Visit Provider Anesthesiology Pain Medicine | DX: M16.12 Unilateral primary osteoarthritis, left hip (principal); M19.019 Primary osteoarthritis, unspecified shoulder; M48.00 Spinal stenosis, site unspecified; M43.10 Spondylolisthesis, site unspecified; G89.29 Other chronic pain | CPT/HCPCS: 20610; 99214; J1010; J3490 ==

== ENCOUNTER 2025-04-13 05:31 | Day surgery (SDC) | payer MEDICARE, MEDICAID, SELFPAY ==
--- NOTE | 2025-04-12 15:11 | ANES.PREANE2 ---
Pre-Anesthetic Assessment Height/Weight: Height 5 ft 9 in Preop Diagnosis: Lumbar stenosis Operation Date: 04/13/25 07:00 Proposed Procedures p Lumbar Decompression(Not Applicable) - Jayy Roman, DO Was Beta Seema taken within 24 hours: N/A Was Clonidine taken within 24 hours: N/A Social No alcohol and No tobacco Quit smoking years ago Exam alert, oriented x 3, clear to auscultation bilaterally and regular rate & rhythm Airway Submandibular: within normal limits Cervical ROM: within normal limits Mallampati: Class III Dentition: false Anesthetic Plan ASA status: 3 Anesthesia: General Other: No prior issues with anesthesia NPO since yesterday evening CAD history, recent LHC demonstrating no disease History of hypothyroidism on Synthroid Hypertension on losartan and metoprolol Echo 02/02/2025 showing EF of 60%. Trace tricuspid regurg with PA pressure of 39 GERD on Protonix Patient has spastic congenital paraplegia. States that she is losing her ability to walk. Will avoid succinylcholine Labs reviewed 04/05/2025 acceptable for procedure Plan for GETA Medications/Allergies Home Medications ?Medication ?Instructions ?Recorded ?Confirmed ?Last Taken ?Type AFO to left and right #1 ea 07/06/23 04/13/25 Unknown Rx Orthopedic shoes #1 ea 10/05/23 04/13/25 Unknown Rx cyanocobalamin (vitamin B-12) 1,000 mcg IM .Monthly #10 mL 06/20/24 04/13/25 03/12/25 Rx 1,000 mcg/mL injection solution luer lock syringe 1ML #50 ea 06/20/24 04/13/25 Unknown Rx safety needles 22 gauge x 1 (Easy #50 ea 06/20/24 04/13/25 Unknown Rx Touch FlipLock Needle) losartan 100 mg tablet 100 mg PO DAILY #30 tabs 08/07/24 04/13/25 04/12/25 Rx bupropion HCl 300 mg 24 hr tablet, 300 mg PO DAILY #30 tabs 10/24/24 04/13/25 04/12/25 Rx extended release silver sulfadiazine 1 % topical 1 applic topical BID 2 weeks #50 11/09/24 04/13/25 Unknown Rx cream grams Cam Boot #1 ea 12/01/24 04/13/25 Unknown Rx baclofen 10 mg tablet 10 mg PO BID 90 days #180 tabs 12/06/24 04/13/25 04/12/25 Rx diclofenac sodium 1.5 % topical 40 drp topical QID #150 mL 12/06/24 04/13/25 04/05/25 05:00 Rx drops left and right knee economy braces #1 ea 12/29/24 04/13/25 Unknown Rx Bedside commode #1 ea 02/12/25 04/13/25 Unknown Rx Meals on wheels #1 ea 02/12/25 04/13/25 Unknown Rx metoprolol succinate 25 mg 12.5 mg (1/2 x 25 mg) PO DAILY #90 02/15/25 04/13/25 04/13/25 Rx tablet,extended release 24 hr tabs cholecalciferol (vitamin D3) 50 50 mcg PO DAILY #30 caps 02/27/25 04/13/25 04/12/25 Rx mcg (2,000 unit) capsule diazepam 5 mg tablet 5 mg PO DAILY PRN anxiety #20 tabs 03/09/25 04/13/25 04/13/25 Rx levothyroxine 112 mcg capsule 112 mcg PO DAILY #30 caps 03/26/25 04/13/25 04/13/25 Rx sucralfate 1 gram tablet (Carafate) 1 g PO TID #90 tabs 03/26/25 04/13/25 04/12/25 Rx gabapentin 600 mg tablet 1,200 mg PO TID 04/04/25 04/13/25 04/12/25 History pantoprazole 40 mg tablet,delayed 40 mg PO DAILY 04/04/25 04/13/25 04/13/25 History release citalopram 20 mg tablet 20 mg PO DAILY #90 tabs 04/06/25 04/13/25 04/12/25 Rx calcium 500 mg (as 1 tab PO DAILY 04/12/25 04/13/25 04/12/25 History carbonate)-vitamin D3 10 mcg (400 unit) tablet (Calcium 500 + D) oxybutynin chloride 5 mg tablet 5 mg PO QPM 04/12/25 04/13/25 04/11/25 History ropinirole 0.5 mg tablet 0.5 mg PO QPM PRN restless legs 04/12/25 04/13/25 04/11/25 History Allergies Allergy/AdvReac Type Severity Reaction Status Date / Time Latex, Natural Rubber Allergy Intermediate ADR-Itching Verified 04/13/25 06:09 amoxicillin Allergy ALGY-Hives Verified 04/13/25 06:09 succinylcholine Allergy ADR-Numbnes Verified 04/13/25 06:09 s [facility] Anesthesia Medical History Vitamin D deficiency Injury of foot, left GERD (gastroesophageal reflux disease) Generalized anxiety disorder Liver lesion benign Osteopenia Vitamin B12 deficiency Overactive bladder Chronic kidney disease, stage 3a Hypothyroidism Major depression Paraplegia, 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 Migraine Hypoglycemia she eats every 4 hours daily to keep her BG up. No known cause. Surgical History Hx of cholecystectomy Hx of toe surgery right great toenail removal Hx of hand surgery hx of cyst removal from left hand Hx of hysterectomy for history of cervical cancer Family History Mother Cancer rectal cancer Brother Cancer rectal Father CAD (coronary artery disease) Other Spastic paraplegia Social History Smoking and tobacco/nicotine status: never used tobacco/nicotine Quit status (tobacco/nicotine): has quit using Former quit date comment: age 51 Alcohol intake: never Substance/Drug Use: current Substance/Drug use frequency: few times a week Other substance/drug use details: julia Lives independently: No Household members: friend(s) Data Anesthesia Cardiac Studies: Echocardiogram 02/02/25 Sestamibi Stress Test (Cardiology) 02/01/25
[2025-04-13] VITALS (9 sets, daily range): BP systolic 111–139; BP diastolic 76–100; PULSE 62–80; RESP 13–19; TEMP 36.6–36.8; O2SAT 92–96; BMI 31.3
--- NOTE | 2025-04-13 06:47 | W.PM.OPSFHP ---
Same Day Surgery H&P Indication for Procedure/HPI DATE OF PROCEDURE: April 13, 2025 CHIEF COMPLAINT/INDICATIONFOR SURGICAL PROCEDURE: Back and leg pain PREOP DIAGNOSIS: Lumbar stenosis with neurogenic claudication PLANNED PROCEDURE: Operation Date: 04/13/25 07:00 Proposed Procedures p Lumbar Decompression(Not Applicable) - Jayy Roman, DO Medications/Allergies* Home Medications ?Medication ?Instructions ?Recorded ?Confirmed ?Type gabapentin 600 mg tablet 1,200 mg PO TID 04/04/25 04/13/25 History pantoprazole 40 mg tablet,delayed 40 mg PO DAILY 04/04/25 04/13/25 History release calcium 500 mg (as 1 tab PO DAILY 04/12/25 04/13/25 History carbonate)-vitamin D3 10 mcg (400 unit) tablet (Calcium 500 + D) oxybutynin chloride 5 mg tablet 5 mg PO QPM 04/12/25 04/13/25 History ropinirole 0.5 mg tablet 0.5 mg PO QPM PRN restless legs 04/12/25 04/13/25 History Allergies/Adverse Reactions Allergy/AdvReac Type Severity Reaction Status Date / Time Latex, Natural Rubber Allergy Intermediate ADR-Itching Verified 04/13/25 06:09 amoxicillin Allergy ALGY-Hives Verified 04/13/25 06:09 succinylcholine Allergy ADR-Numbnes Verified 04/13/25 06:09 s Current Medications: Generic Name Dose Route Start Last Admin Trade Name Freq PRN Reason Stop Dose Admin Sodium Chloride 1,000 mls @ 30 mls/hr 04/13/25 06:15 04/13/25 06:44 Sodium Chloride 0.9% IV 04/14/25 06:14 30 mls/hr .Q24H ABHI Administration Pertinent History/Comorbid Conditions* Medical History (Updated 02/28/25 @ 07:51 by Jefe Macedo MD) Vitamin D deficiency Injury of foot, left GERD (gastroesophageal reflux disease) Generalized anxiety disorder Liver lesion benign Osteopenia Vitamin B12 deficiency Overactive bladder Chronic kidney disease, stage 3a Hypothyroidism Major depression Paraplegia, 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 Migraine Hypoglycemia she eats every 4 hours daily to keep her BG up. No known cause. Surgical History (Updated 08/05/24 @ 10:54 by JAMA Jacinto) Hx of cholecystectomy Hx of toe surgery right great toenail removal Hx of hand surgery hx of cyst removal from left hand Hx of hysterectomy for history of cervical cancer Family History (Updated 04/12/23 @ 12:01 by César Clemons NP) CAD (coronary artery disease) Father Spastic paraplegia Cancer Mother rectal cancer Brother rectal Social History Smoking and tobacco/nicotine status: never used tobacco/nicotine Quit status (tobacco/nicotine): has quit using Former quit date comment: age 51 Alcohol intake: never Substance/Drug Use: current Substance/Drug use frequency: few times a week Other substance/drug use details: gummies Lives independently: No Household members: friend(s) Pertinent Exam Findings alert, oriented x 3 and clear to auscultation bilaterally Recommendations Risks and benefits of procedure reviewed Surgery/Procedure today Coding Level of Care Code Acute Code for Jw Flower
[2025-04-13] MEDS: lidocaine-epi 1% 20 mL INJ INJECTION (07:23)
--- NOTE | 2025-04-13 07:46 | XR_ITS ---
WS: [id number] XR lumbar spine 2-3V* [id number] REASON FOR EXAM: OR PICS FINDINGS: Surgical instrument overlies the right L4-L5 disc space. XR/XR lumbar spine 2-3V* [id number] IMPRESSION: Lumbar level localization and surgery as above.
--- NOTE | 2025-04-13 08:13 | P.OP_ITS ---
Operative Report Date of procedure: April 13, 2025 Pre-op diagnosis: Lumbar stenosis neurogenic claudication Procedure done: L4/5 laminectomy with partial facetectomy Surgeon: Jayy Roman DO Estimated blood loss (mL): 5 Procedure: L4/5 laminectomy with partial facetectomy Patient is brought to the operative suite. After undergoing anesthesia they are placed in the prone position. All areas of impingement are well padded. Patient is then prepped and draped in the normal sterile fashion. A skin incision is made over the L4/5 level. This is confirmed under c-arm guidance. A series of dilators are passed and the tubular retractor is docked on the L4 lamina. A bovie is used to clear the soft tissue off the lamina and the L 4/5 facet joint. A high speed analy is then used to perform the laminectomy and take down the medial aspect of the L 4/5 facet joint. A kerrison rongeure was then used to take down the remaining lamina and smooth the edge of the laminectomy up to the point where the ligamentum flavum attaches. Attention was then brought to the medial aspect of the facet joint. The remai mellisa medial aspect of the superior and inferior aspect of the facet joint were taken down with the kerrison from the pedicle of L4 to L 5. The facet joint had significant hypertrophy. Attention was then brought to the Ligamentum Flavum. The ligament was taken down from the lamina of L4 to L5 and out medially to the remaining facet joint. The ligament was thick. The dura was then exposed. The dura was in good repair. The L4 nerve was then traced with a curette out the L4/5 foramen and found to be adequately decompressed. The L5 nerve was traced with a curette around the L5 pedicle. The lateral recess was opened with a kerrison helping to further decompress the L5 nerve. Wound is then irrigated copiously with saline and surgiflo is used to stop any bleeding. The tubular retractor is removed and the wound is closed with vicryl and monocryl suture. Steri strips were applied. A sterile dressing is then placed. Patient was then placed in the supine position and transferred to the P ACU in stable condition.
--- NOTE | 2025-04-13 09:08 | ANE.PACU2 ---
Inpatient post-anesthesia follow up: Airway intact: Yes Vital signs: Temperature 98.0 F Pulse Rate 62 Respiratory Rate 17 Blood Pressure 122/85 Pulse Oximetry 96 Oxygen Delivery Me thod Room Air Oxygen Flow Rate Fraction of Inspir ed Oxygen Hydration adequate: Yes Nausea and vomiting: No Pain level: 1 Mental status: Baseline
== END 2025-04-13 09:08 | disposition home or self-care (01) ==
PROVIDERS: PCP Clinical Nurse Specialist Adult Health; Visit Provider Orthopaedic Surgery
PROC: (CPT 63005; principal; 2025-04-13 07:00)
DX: M48.062 Spinal stenosis, lumbar region with neurogenic claudication (principal); K21.9 Gastro-esophageal reflux disease without esophagitis; F41.9 Anxiety disorder, unspecified; E03.9 Hypothyroidism, unspecified; E16.2 Hypoglycemia, unspecified; Z85.41 Personal history of malignant neoplasm of cervix uteri; Z80.0 Family history of malignant neoplasm of digestive organs; Z87.891 Personal history of nicotine dependence; F12.90 Cannabis use, unspecified, uncomplicated; I12.9 Hypertensive chronic kidney disease with stage 1 through stage 4 chronic kidney disease, or unspecified chronic kidney disease; N18.31 Chronic kidney disease, stage 3a; I25.10 Atherosclerotic heart disease of native coronary artery without angina pectoris
CPT/HCPCS: 63047; 72100; 76000; A4649; J1100; J1171; J1885; J2250; J2371; J2405; J2704; J3010; J3490; J7030; J9999

== ENCOUNTER → 2025-05-01 08:02 | Outpatient (BNVA) | payer MEDICARE, MEDICAID, SELFPAY | PROVIDERS: PCP Clinical Nurse Specialist Adult Health; Visit Provider Orthopaedic Surgery | DX: Z98.890 Other specified postprocedural states (principal) | CPT/HCPCS: 99024 ==